=== PATIENT | female | born 1935 | race Caucasian/White ===

== ENCOUNTER 2018-10-06 09:53 | Inpatient (IN) | payer MEDICARE, MEDICAID ==
[~2018-10-06] VITALS: Ht 152.4 cm; Wt 97.5 kg
[~2018-10-06 09:53] MED LIST: ACETAMINOPHEN325 M1 PO; ASPIRIN81 M2 PO; ATIVAN1 MG PO; BENZTROPINE MESY2 MG; CALTRATE 600 +1 EACH PO; CARDIZEM CD180 MG PO; CENTRUM SILVER1 EAC4 PO; CEPACOL SORE T1 EAC2; CIPROFLOXACIN500 M1 PO; CIPROFLOXACIN500 M3 PO; DUONEB 2.5-0.5 M3 ML INH; ERGOCALCIF50000 UNIT PO; FLONASE 0.05%50 MCG NASAL; FLUPHENAZINE; FLUPHENAZINE 5 M5 M1 PO; HUMALOG PE100 UNIT/1; HUMALOG PE100 UNIT/1 SUBQ; HUMALOG100 UNIT/1; HUMALOG100 UNIT/1 SUBQ; I-CAPS AREDS S1 EACH PO; IBUPROFEN 400400 M2; IBUPROFEN200 M2 PO; LASIX 20 MG TAB20 MG PO; LASIX 40 MG TAB40 M1 PO; LEVOTHYROXIN0.125 M1 PO; LIPITOR10 MG PO; LISINOPRIL40 MG PO; MILK OF MA2400 MG/10 PO; MYLANTA 12 OZ355 M1; NITROGLYCERIN0.4 MG PO; NOVOLOG MI100 UNIT/2 SUBQ; NOVOPEN 31 EACH; POTASSIUM CHLO10 ME1 PO; PRINIVIL20 MG PO; PROLIXIN IM; PROLIXIN PO; QUESTRAN PACKET4 GM; SUDAFED30 MG PO; SYNTHROID137 MC1 PO; ULTRACET TABLE1 EACH PO; VITAMIN D1000 UNI1 PO; VOLTAREN GEL 1100 G1 TOP
[2018-10-06 09:54] VITALS: BP 150/76
[2018-10-06] MEDS ORDERED: LEVEMIR SUBQ (10:21)
[2018-10-06] MEDS ORDERED: TRADJENTA5 MG (10:22)
[2018-10-06] MEDS ORDERED: TRAMADOL 50 MG50 MG PO (10:23)
[2018-10-06] MEDS ORDERED: NORVASC5 MG PO (10:24)
[2018-10-06] MEDS ORDERED: DEPAKOTE SPRIN125 MG PO (10:24)
[2018-10-06] MEDS ORDERED: FISH OIL 1,001000 M2 PO (10:25)
[2018-10-06] MEDS ORDERED: FLUPHENAZINE HC10 MG PO (10:26)
[2018-10-06] MEDS ORDERED: OLANZAPINE2.5 MG PO (10:27)
[2018-10-06] MEDS ORDERED: PREDNISOLONE ACE5 ML OPHTHALMIC (10:28)
[2018-10-06 10:40] LABS: ABSOLUTE BASOPHILS 0.1 thou/uL (0.0-0.2); ABSOLUTE EOSINOPHILS 0.2 thou/uL (0.0-0.7); ABSOLUTE LYMPHOCYTES 1.6 thou/uL (0.8-5.3); ABSOLUTE MONOCYTES 0.9 thou/uL (0.0-1.2); ABSOLUTE NEUTROPHILS 4.7 thou/uL (1.6-8.1); BASOPHILS 1.2 %; EOSINOPHILS 2.4 %; HEMATOCRIT 42.2 % (37.0-47.0); MCH 31.7 pg (26.0-34.0); MCHC 33.2 g/dL (28.0-37.0); MCV 95.5 fL (80.0-100.0); MONOCYTES 12.4 %; MPV 7.8 fl. (7.2-11.1); NUCLEATED RBCS 0 /100WBC; PLATELET COUNT* 252 thou/uL (150-400); RBC 4.42 mil/uL (4.20-5.00); RDW-CV 14.1 % (10.5-14.5); WBC 7.5 thou/uL (4.0-11.0)
[2018-10-06 10:45] LABS: PROTIME 10.5 Seconds (9.20-11.50)
[2018-10-06 10:46] LABS: ANION GAP 6 mmol/L (7-16); BUN 9 mg/dL (7-18); CALCIUM 9.1 mg/dL (8.5-10.1); CHLORIDE 101 mmol/L (98-107); CO2 32 mmol/L (21-32); CREATININE 0.9 mg/dL (0.6-1.3); GLUCOSE 70 mg/dL (70-99); POTASSIUM 3.9 mmol/L (3.5-5.1); SODIUM 139 mmol/L (136-145)
[2018-10-06 10:56] LABS: ALBUMIN 3.3 g/dL (3.4-5.0); ALKALINE PHOSPHATASE 93 U/L (46-116); LIPASE 61 U/L (73-393); MAGNESIUM 1.7 mg/dL (1.8-2.4); NT-PRO BRAIN NAT PEPTIDE 115 pg/mL (<300); SGOT 21 U/L (15-37); SGPT 21 U/L (30-65); TOTAL BILIRUBIN 0.4 mg/dL (<0.1-1.0); TOTAL PROTEIN 7.4 g/dL (6.4-8.2); TROPONIN-I LEVEL <0.06 ng/mL (<0.06)
[2018-10-06 14:25] VITALS: BP 141/66
[2018-10-06 14:45] VITALS: BP 153/77
[2018-10-06] MEDS ORDERED: XARELTO20 MG PO (15:14)
--- NOTE | 2018-10-06 16:42 | 2DMMODE ---
[place] [address] 2 D/M-MODE ECHOCARDIOGRAM Name: BELTRAN MCQUEEN Room: [address] IN [facility]#: [id number] Admission: 10/06/18 Attend Phys: Itz Alvarez, Discharge: Date of : 35 Date of Service: 10/06/18 1642 Report #: [id number] THIS REPORT FOR: //name// APPROVED REPORT Study performed: 10/06/2018 15:53:48 EXAM: Comprehensive 2D, Doppler, and color-flow Echocardiogram Patient Location: In-Patient Room #: [facility][note 3] Status: routine BSA: 1.84 HR: 61 bpm BP: 153/77 mmHg Rhythm: NSR Other Information Technically limited study due to body habitus, poor endocardial definition. Indications Chest Pain Echo Enhancing Agent Indication: Endocardial border delineation Agent(s) / Amount(s) Used: Optison 3 cc 2D Dimensions IVSd: 11.74 (7-11mm) LVOT Diam: 19.02 (18-24mm) LVDd: 39.96 mm PWd: 9.67 (7-11mm) Ascending Ao: 34.43 (22-36mm) LVDs: 22.29 (25-40mm) Aortic Root: 32.33 mm Volumes Left Atrial Volume (Systole) LA ESV Index: 28.60 mL/m2 Aortic Valve AoV Peak Adilson.: 1.22 m/s AO Peak Gr.: 5.98 mmHg LVOT Max P.64 mmHg AO Mean Gr.: 2.81 mmHg LVOT Mean P.64 mmHg LVOT Max V: 0.95 m/s AO V2 VTI: 23.21 cm LVOT Mean V: 0.58 m/s EVAN (VTI): 2.70 cm2 LVOT V1 VTI: 22.06 [place] [address] 2 D/M-MODE ECHOCARDIOGRAM Name: BELTRAN MCQUEEN Room: [address] IN [facility]#: [id number] Admission: 10/06/18 Attend Phys: Itz Alvarez, Discharge: Date of : 35 Date of Service: 10/06/18 1642 Report #: [id number] Mitral Valve E/A Ratio: 0.84 MV Decel. Time: 232.06 ms MV E Max Adilson.: 0.99 m/s MV PHT: 67.30 ms MVA (PHT): 3.27 cm2 TDI E/Lateral E': 9.90 E/Medial E': 12.38 Medial E' Adilson.: 0.08 m/s Lateral E' Adilson.: 0.10 m/s Pulmonary Valve PV Peak Adilson.: 0.79 m/s PV Peak Gr.: 2.51 mmHg Left Ventricle The left ventricle is normal size. There is normal LV segmental wall motion. There is normal left ventricular wall thickness. Left ventricular systolic function is normal. The left ventricular ejection fraction is within the normal range. LVEF is 55-60%. Grade I - abnormal relaxation pattern. Right Ventricle The right ventricle is normal size. The right ventricular systolic function is normal. Atria The left atrium size is normal. The right atrium size is normal. Aortic Valve The aortic valve is normal in structure. No aortic regurgitation is present. There is no aortic valvular stenosis. Mitral Valve There is mitral annular calcification. Trace mitral regurgitation. No evidence of mitral valve stenosis. Tricuspid Valve The tricuspid valve is normal in structure. Trace tricuspid regurgitation. Unable to assess PA pressure. Pulmonic Valve The pulmonary valve is normal in structure. Trace [place] [address] 2 D/M-MODE ECHOCARDIOGRAM Name: BELTRAN MCQUEEN Room: [address]#: [id number] Admission: 10/06/18 Attend Phys: Itz Alvarez, Discharge: Date of : 35 Date of Service: 10/06/18 1642 Report #: [id number] Great Vessels The aortic root is normal in size. IVC is normal in size and collapses >50% with inspiration. Pericardium There is no pericardial effusion. <Conclusion> LVEF is 55-60%. There is normal LV segmental wall motion. Grade I - abnormal relaxation pattern. There is no aortic valvular stenosis. No aortic regurgitation is present. Trace mitral regurgitation. There is no aortic valvular stenosis. No aortic regurgitation is present. <ELECTRONICALLY SIGNED> By: Jose Orta MD, FACC 10/06/181641 41 41 Jose Orta MD, FACC /INF
--- NOTE | 2018-10-06 17:55 | NUR ---
PT TRANSFERED TO UNIT VIA ED THIS SHIFT AT 1500. PT HAS SCHIZOPHRENIA AND IS CURRENTLY ALERT AND ORIENTED TO SELF, UNSURE OF BASELINE FAMILY IS NOT AT BEDSIDE, CODE STATUS NEEDS TO BE FOLLOWED UP WITH TEAM WHEN FAMILY IS HERE. PT SR W BBB ON THE MONITOR AND VSS ON 2L PER NC AT THIS TIME. PT HAS 5 PIX TAKEN AND PLACED IN CHART THAT WERE PRESENT ON ADMISSION. US AND ECHO DONE AND COMPLETE. PT HAS NO C/O PAIN AND IS TOLERATING A DM DIET AT THIS TIME. PT IS ORDERED TO BE BEDREST AT THIS TIME. PT HAS TROP SERIES SCHEDULED, WILL CONTINUE TO MONITOR AND ASSESS. HOURLY ROUNDING MAINTAINED THIS SHIFT.
[2018-10-06 19:30] VITALS: BP 165/81
--- NOTE | 2018-10-06 19:30 | NUR ---
RECEIVED REPORT AND ASSUMED CARE OF PT, ASSESSMENT COMPLETED. PT UNABLE TO ANSWER ORIENTATION QUESTION CORRECTLY. O2 ON AT 2L/NC, NO SOB NOTED. NO C/O CP, TELEMETRY ON SHOWING SR WITH BBB. INCONT OF URINE CONSTANTLY. MARIUM AREA WITH MOISTURE DERMATITIS. ZEHRA LOWER LEGS, ANKLES AND FEET WITH 3+ EDEMA. WILL CONT TO MONITOR AND ASSIST NEEDED.
[2018-10-07] VITALS: BP 117/48
[2018-10-07 04:00] VITALS: BP 139/62
[2018-10-07 05:05] LABS: ABSOLUTE BASOPHILS 0.1 thou/uL (0.0-0.2); ABSOLUTE EOSINOPHILS 0.2 thou/uL (0.0-0.7); ABSOLUTE LYMPHOCYTES 1.7 thou/uL (0.8-5.3); ABSOLUTE MONOCYTES 1.2 thou/uL (0.0-1.2); ABSOLUTE NEUTROPHILS 4.1 thou/uL (1.6-8.1); BASOPHILS 1.3 %; EOSINOPHILS 2.7 %; HEMATOCRIT 36.9 % (37.0-47.0); HEMOGLOBIN 12.5 gm/dL (12.0-15.0); LYMPHOCYTES 23.6 %; MCH 32.1 pg (26.0-34.0); MCHC 33.8 g/dL (28.0-37.0); MCV 95.2 fL (80.0-100.0); MPV 8.1 fl. (7.2-11.1); NUCLEATED RBCS 0 /100WBC; PLATELET COUNT* 243 thou/uL (150-400); POLYS 56.4 %; RBC 3.87 mil/uL (4.20-5.00); RDW-CV 14.1 % (10.5-14.5); WBC 7.3 thou/uL (4.0-11.0)
[2018-10-07 05:23] LABS: ANION GAP 7 mmol/L (7-16); BUN 10 mg/dL (7-18); CALCIUM 8.6 mg/dL (8.5-10.1); CHLORIDE 100 mmol/L (98-107); CO2 30 mmol/L (21-32); CREATININE 0.9 mg/dL (0.6-1.3); GLUCOSE 124 mg/dL (70-99); POTASSIUM 3.9 mmol/L (3.5-5.1); SODIUM 137 mmol/L (136-145); TROPONIN-I LEVEL <0.06 ng/mL (<0.06)
--- NOTE | 2018-10-07 05:47 | NUR ---
SLEPT WELL. PT REPOSITION Q 2HR FROM SIDE TO SIDE. INCONT OF URINE EACH TIME. NO CHANGE IN ASSESSMENT. TELEMETRY CONT TO SHOW SR WITH BBB. LAST EVENING REFUSED LAB DRAW BUT ALLOWED DRAW THIS AM. HS GOALS OF REST AND SAFETY ACHIEVED. HOURLY ROUNDING OBSERVED.
[2018-10-07 08:10] VITALS: BP 164/51
--- NOTE | 2018-10-07 10:20 | EKG ---
[place] [address] ELECTROCARDIOGRAM REPORT Name: BELTRAN MCQUEEN Room: [address] ADM IN [facility]#: [id number] Admission: 10/06/18 Attend Phys: Itz lAvarez MD Discharge: Date of : 35 Report #: [id number] THIS REPORT FOR: //name// [facility] ED Test Date: 2018-10-06 Test Time: 10:00:42 Pat Name: BELTRAN MCQUEEN Department: Room: [facility] Gender: F Programmer Numerical Control: : 1935 Requested By: Ramiro Rae Order Number: [id number] MD: Abdullahi Kiser Measurements Intervals [place]wn Rate: 70 P: 45 WI: 175 QRS: -32 QRSD: 125 T: 27 QT: 440 QTc: 475 Interpretive Statements Sinus rhythm Right bundle branch block Compared to ECG 05/13/2013 15:07:10 Right bundle-branch block now present Sinus arrhythmia no longer present Electronically Signed On 10-07-2018 10:20:26 EDUCATION PROFESSIONAL by Abdullahi Kiser [email or web address] <ELECTRONICALLY SIGNED> By: Abdullahi Kiser MD, [facility] 10/07/18 1020 1000 1000 Abdullahi Kiser MD, [facility] /EPI
[2018-10-07 11:13] VITALS: BP 131/63
[2018-10-07 11:46] VITALS: BP 109/49; BP 97/45
--- NOTE | 2018-10-07 14:37 | NUR ---
REPORT CALLED AND GIVEN TO CHANCE AT NURSING FACILITY. PT VSS THIS SHIFT WITH NO C/O CHEST PAIN THIS ADMISSION. PT SR W BBB ON THE MONITOR AND ON 2L PER NC LABS STABLE WITH NO NEW CONCERNS. PT TOLERATING CARDIAC DIET AND WOUNDS NOTED DURING REPORT AND IN PIX IN CHART. IV REMOVED INTACT AT THIS TIME. PT TO GO VIA AMBULANCE, PT CLEANED UP AND GOTTEN READY FOR TRANSPORT. WILL CONTINUE TO MONITOR UNTIL SHE LEAVES.
--- NOTE | 2018-10-07 14:48 | NUR ---
CONFIGURATION MANAGEMENT ADVISOR [facility] TODAY AT 1500. OLGA WILL INFORM LINSEY OF THE PATIENT'S RETURN. D/C [employer] INFORMED THE PATIENT'S DTR OSORIO OF HER MOTHERS RETURN TO [facility], AND SHE IS IN AGREEMENT. D/C [employer] FAXED THE PATIENT'S D/C ORDERS TO [facility]. D/C [employer] ARRANGED TRANSPORT FOR THE PATIENT WITH [facility] FOR 1500. D/C [employer] INFORMED THE RN IN-CHARGE OF THE PATIENT OF THE PATIENT'S TIME OF TRANSPORT AND WHERE TO CALL REPORT. CM WILL REMAIN AVAILABLE TO ASSIST AND FOLLOW NEEDED.
== END 2018-10-07 15:09 | DRG 445 ==
LOC: M.ERS 09:53 → M.2W 11:19 → M.TBA-ER 11:19 → M.2W 14:34
PROVIDERS: Emergency Medicine Emergency Medical Services; ADMIT Internal Medicine
DX: K80.20 Calculus of gallbladder without cholecystitis without obstruction (principal); Z68.41 Body mass index [BMI] 40.0-44.9, adult; I50.32 Chronic diastolic (congestive) heart failure; I25.119 Atherosclerotic heart disease of native coronary artery with unspecified angina pectoris; I11.0 Hypertensive heart disease with heart failure; E78.5 Hyperlipidemia, unspecified; E66.9 Obesity, unspecified; F20.9 Schizophrenia, unspecified; E11.9 Type 2 diabetes mellitus without complications; Z28.21 Immunization not carried out because of patient refusal; I25.2 Old myocardial infarction; Z79.899 Other long term (current) drug therapy

== ENCOUNTER 2019-11-01 15:33 | Inpatient (IN) | payer MEDICARE, MEDICAID ==
[~2019-11-01] VITALS: Ht 160 cm; Wt 88.9 kg
--- NOTE | ~2019-11-01 | CON ---
[address] [address] CONSULTATION Name: BELTRAN MCQUEEN Room: [place] [address] ADM IN [facility].#: [id number] Admission: 11/01/19 Attend Phys: Adelina Gould MD Discharge: Date of : 35 Report #: [id number] THIS REPORT FOR: //name// cc: Sorin Yanez MD, Dennis R MD ~ THIS REPORT FOR: //name// CC: Sorin Gould CARDIOLOGY CONSULTATION LOCATION: Room number is 233. HISTORY OF PRESENT ILLNESS: I was asked by Dr. Mahajan to see this 84-year-old white female in cardiology consultation for evaluation and treatment of new onset atrial fibrillation with rapid ventricular response. This lady has a history of schizophrenia and now dementia and cannot give a history. She is from a alf. She was admitted with acute hypoxic respiratory failure. She has COPD. She also has pneumonia on her chest x-ray. Other problems include insulin-dependent diabetes mellitus, hypercholesterolemia, and essential hypertension. She has been treated aggressively for her respiratory difficulties. She came in on 11/01/2019. She had been getting DuoNeb treatments every 4 hours. Last night, she went into atrial fibrillation with rapid ventricular response. She was treated with diltiazem and has reverted to sinus rhythm. Her DuoNebs have been switched to Xopenex. She has been switched to p.o. diltiazem. I believe she got IV diltiazem last night. She has remained in sinus rhythm. It is not known whether she has underlying heart or coronary artery disease. Her past medical history does include coronary artery disease and myocardial infarction as best I can tell. Additionally, the above past medical history applies. MEDICATIONS: Included atorvastatin 10 mg daily, Levemir insulin in adjusted dose. Amlodipine 5 mg daily, fish oil 1000 mg daily, aspirin 81 mg daily, lisinopril 20 mg daily, lorazepam 1 mg p.r.n., Drisdol p.r.n. that is ergocalciferol, magnesium hydroxide p.r.n., p.r.n. nitroglycerin, tramadol 50 mg p.r.n., Depakote at bedtime 125 mg, NovoLog 70/30 at 7 units subcutaneous t.i.d., Lasix 40 mg daily, levothyroxine 150 mcg daily, fluphenazine 5 mg t.i.d., olanzapine 7.5 mg at bedtime, fluphenazine decanoate 25 mg IM every 2 weeks, ipratropium/albuterol sulfate inhaler q.i.d., Mucinex 600 mg every 12 hours, and nystatin topical p.r.n. ALLERGIES: She has no known allergies. REVIEW OF SYSTEMS: [place] [address] CONSULTATION Name: BELTRAN MCQUEEN Room: [address] IN [facility].#: [id number] Admission: 11/01/19 Attend Phys: Adelina Gould MD Discharge: Date of : 35 Report #: [id number] FAMILY HISTORY: Unobtainable. SOCIAL HISTORY: Unobtainable. PHYSICAL EXAMINATION: GENERAL: She presents as well-developed, well-nourished, obese white female, in no acute distress. VITAL SIGNS: Her pulse is 72 and regular, respirations 28 and regular, temperature 97.7, blood pressure 131/70. HEENT: Her head was atraumatic. Eyes clear. NECK: Supple. There is no jugular venous distention or hepatojugular reflux, although her neck is quite obese. LUNGS: Revealed decreased breath sounds with an increased expiratory phase bilaterally. There were bilateral wheezes. HEART: Revealed distant first and second heart sounds. There were no murmurs, rubs, thrills, heaves or gallops. PMI is not displaced. The rhythm is regular. ABDOMEN: Obese, soft and flat and nontender. No palpable masses, no organomegaly. EXTREMITIES: Reveal no cyanosis or clubbing. There was trace edema. NEUROLOGIC: The patient did not mentate normally. She had a very child like demeanor. She did answer questions, but in a very limited fashion. LABORATORY DATA: She did have a V/Q lung scan on admission that was low to intermediate probability. She had a CT of the chest, which showed ground glass opacities in both lungs, particularly in the lingula and lung bases, otherwise it was unremarkable. That was a PE protocol. Regular chest x-ray showed limited assessment due to low lung volumes. There is bronchial wall thickening. Those studies were back on the . The NT-proBNP was 577. I believe there was a negative troponin at one point, although I do not see that, at least I was told that. The EKG from the from last night demonstrated atrial fibrillation with a rapid ventricular response. There is right bundle branch block and low voltage in the precordial leads. This lady in fact does have large breasts. Her initial EKG, when she came in, shows sinus arrhythmia, right bundle branch block that is really about it. She is in sinus rhythm now. IMPRESSION: 1. Atrial fibrillation with rapid ventricular response. 2. Chronic obstructive pulmonary disease with exacerbation. 3. Acute on chronic respiratory failure. 4. Dementia. 5. Pneumonia. 6. Insulin-dependent diabetes mellitus. 7. Hypercholesterolemia. 8. Essential hypertension. 9. [place] [address] CONSULTATION Name: BELTRAN MCQUEEN Room: [place] [address] ADM IN .R.#: [id number] Admission: 11/01/19 Attend Phys: Adelina Gould MD Discharge: Date of : 35 Report #: [id number] RECOMMENDATION: I would observe her at this point. She probably needs to be on aspirin as a stroke prevention modality. I suspect this lady has a fall risk. She has a fall risk sign outside her door, so I am hesitant to anticoagulate her with either Coumadin or Eliquis, etc. I would give her Xopenex, which has already been ordered. She was on DuoNebs. I will leave her on the diltiazem, so that if she goes into atrial fibrillation, her rate will be controlled. I checked an echo. I would probably not do a stress test because I do not think she can cooperate. I would not Cath her as I do not think she can cooperate and if she has another episode of atrial fibrillation, then I would treat her with an antiarrhythmic. She cannot get a type 1 drug. I would be hesitant given her lung disease to give her amiodarone. Apparently, she does not have a history of congestive heart failure. Note that her BNP was fairly low when she came in, it was only 577. I am not sure, I would give her sotalol either. I would give her dronedarone, however. She is probably a candidate as I do not think she has a history of heart failure. Thank you very much for asking me to see the patient. If there are any questions, please feel free to contact me. By: 1430 [id number]. Lai Hopkins MD, FACC /nt
[~2019-11-01 15:33] MED LIST changes: +ATIVAN1 M1 PO; -ATIVAN1 MG PO; +DEPAKOTE SPRIN125 MG PO; +FISH OIL 1,001000 M2 PO; -LASIX 20 MG TAB20 MG PO; +LEVEMIR100 UNIT/1 SUBQ; -MILK OF MA2400 MG/10 PO; +MILK OF MA400 MG/5 M PO; +NORVASC5 MG PO; +OLANZAPINE2.5 MG PO; +PREDNISOLONE ACE5 ML OPHTHALMIC; -SYNTHROID137 MC1 PO; +SYNTHROID150 MCG PO; +TRADJENTA5 MG; +TRAMADOL 50 MG50 MG PO; +XARELTO20 MG PO
[2019-11-01 15:38] VITALS: BP 137/78
[2019-11-01] MEDS ORDERED: FLUPHENAZI25 MG/1 ML IM (15:52)
[2019-11-01] MEDS ORDERED: IPRAT-ALBUT 0.5-3 ML INH (15:56)
[2019-11-01 15:58] LABS: HEMATOCRIT 42.5 % (37.0-47.0); HEMOGLOBIN 14.2 gm/dL (12.0-15.0); MCH 30.9 pg (26.0-34.0); MCHC 33.5 g/dL (28.0-37.0); MCV 92.3 fL (80.0-100.0); MPV 8.3 fl. (7.2-11.1); NUCLEATED RBCS 0 /100WBC; PLATELET COUNT* 220 thou/uL (150-400); RBC 4.61 mil/uL (4.20-5.00); RDW-CV 14.9 % (10.5-14.5); WBC 7.1 thou/uL (4.0-11.0)
[2019-11-01] MEDS ORDERED: MUCINEX600 MG PO (16:02)
[2019-11-01] MEDS ORDERED: NYSTATIN1000000 UN TOP (16:04)
[2019-11-01 16:08] LABS: BE 0.1 mmol/L (-2 to +3); PCO2 43.2 mmHg (35.0-45.0); PO2 116.7 mmHg (75.0-100.0); pH 7.386 (7.340-7.450)
[2019-11-01 16:09] LABS: CALCIUM 8.5 mg/dL (8.5-10.1); CREATININE 1.4 mg/dL (0.6-1.3); POTASSIUM 4.1 mmol/L (3.5-5.1)
[2019-11-01 16:13] LABS: ALBUMIN 3.5 g/dL (3.4-5.0); MAGNESIUM 1.7 mg/dL (1.8-2.4); TOTAL BILIRUBIN 0.3 mg/dL (<0.1-1.0); TOTAL PROTEIN 8.4 g/dL (6.4-8.2)
[2019-11-01 16:25] LABS: URINE BILIRUBIN NEGATIVE (Negative); URINE BLOOD TRACE (Negative); URINE CLARITY SL CLOUDY; URINE COLOR YELLOW; URINE GLUCOSE-RANDOM NEGATIVE (Negative); URINE KETONES NEGATIVE (Negative); URINE LEUKOCYTES-REFLEX 1+ (Negative); URINE NITRITE-REFLEX POSITIVE (Negative); URINE PROTEIN TRACE (Negative); URINE SPECIFIC GRAVITY 1.025 (1.005-1.030); URINE UROBILINOGEN 0.2 E.U./dl (0.2-1.0)
[2019-11-01 16:31] LABS: SQUAMOUS 0-3 Few /LPF (0-3); URINE WBC-REFLEX >25 Many /HPF (0-5); WBC CLUMPS Few (None Seen)
[2019-11-01 16:32] LABS: BACTERIA-REFLEX >30 Many /HPF (None Seen); CASTS None Seen /LPF (None Seen); CRYSTALS None Seen /LPF (None Seen); MUCUS None Seen strn/LPF (None Seen); URINE RBC 3-10 Few /HPF (0-2)
[2019-11-01 16:53] LABS: ABSOLUTE LYMPHOCYTES 1.1 thou/uL (0.8-5.3); ABSOLUTE MONOCYTES 0.9 thou/uL (0.0-1.2); ATYPICAL LYMPHS 2 %; LARGE PLATELETS OCCASIONAL; PLATELET ESTIMATE ADEQUATE
[2019-11-01 18:30] VITALS: BP 141/70
[2019-11-01 20:15] VITALS: BP 133/64
[2019-11-01] MEDS ORDERED: VITAMIN D325 MC3 PO (21:05)
[2019-11-02] VITALS: BP 148/81
[2019-11-02 04:00] VITALS: BP 120/57
--- NOTE | 2019-11-02 07:23 | NUR ---
ASSUMED PT CARE AT 1900. NURSING ASSESSMENT COMPLETED AT START OF SHIFT. PT BIGEMINY/SR WITH PACS BBB THIS SHIFT. PT VOICED NO CONCERNS. Q2H REPOSITIONING COMPLETED. HOURLY ROUNDING COMPLETED. HIGH FALL PRECAUTIONS IN PLACE. PT ON BIPAP PART OF THE NIGHT. CALL LIGHT WITHIN REACH.
[2019-11-02 08:35] VITALS: BP 153/68
[2019-11-02 10:59] LABS: APTT 30.1 Seconds (25.0-31.3); INR 1.1
--- NOTE | 2019-11-02 11:16 | EKG ---
[place] [address] ELECTROCARDIOGRAM REPORT Name: ANGELI MCQUEENRadha Rodriguez Room: [place] [address] ADM IN [facility]#: [id number] Admission: 11/01/19 Attend Phys: Adelina Gould, Discharge: Date of : 35 Date of Service: 11/01/19 1542 Report #: [id number] THIS REPORT FOR: cc: Sorin Yanez MD, Dennis R MD Holkins,Abdullahi Stacy MD [facility] ~ THIS REPORT FOR: //name// [facility] ED Test Date: 2019-11-01 Test Time: 15:42:26 Pat Name: BELTRAN MCQUEEN Department: Room: [place] [address] Gender: F Batch Dumper: : 1935 Requested By: Irene Stone Order Number: [id number] Reading MD: Abdullahi Kiser Measurements Intervals [place] Rate: 90 P: -1 AR: 172 QRS: -29 QRSD: 125 T: 15 QT: 442 QTc: 541 Interpretive Statements Sinus arrhythmia Right bundle branch block Baseline wander in lead(s) V1,V2 Compared to ECG 10/06/2018 10:00:42 Sinus arrhythmia is noted Electronically Signed On 11-02-2019 11:15:16 PRINCIPAL PROCESS ENGINEER by Abdullahi Kiser [email or web address] <ELECTRONICALLY SIGNED> By: Abdullahi Kiser MD, [facility] 11/02/19 1115 1542 1542 Abdullahi Kiser MD, [facility] /EPI
[2019-11-02 12:38] VITALS: BP 136/68
[2019-11-02 12:48] LABS: CALCIUM 7.8 mg/dL (8.5-10.1); CREATININE 1.2 mg/dL (0.6-1.3)
--- NOTE | 2019-11-02 15:02 | 2DMMODE ---
[place] [address] 2 D/M-MODE ECHOCARDIOGRAM Name: BELTRAN MCQUEEN Room: [place] [address] ADM IN [facility]#: [id number] Admission: 11/01/19 Attend Phys: Adelina Gould, Discharge: Date of : 35 Date of Service: 11/02/19 1501 Report #: [id number] THIS REPORT FOR: cc: Sorin Yanez MD, Dennis R MD Liston,Jez Bolivar MD [facility] ~ APPROVED REPORT Study performed: 11/02/2019 13:19:42 EXAM: Comprehensive 2D, Doppler, and color-flow Echocardiogram Patient Location: In-Patient Room #: [facility] Status: routine HR: 68 bpm BP: 153/68 mmHg Rhythm: NSR Other Information Study Quality: Good Indications Dyspnea 2D Dimensions IVSd: 12.43 (7-11mm) LVOT Diam: 20.83 (18-24mm) LVDd: 37.58 mm PWd: 11.31 (7-11mm) Ascending Ao: 33.43 (22-36mm) LVDs: 23.41 (25-40mm) Aortic Root: 33.63 mm Volumes Left Atrial Volume (Systole) LA ESV Index: 27.60 mL/m2 Aortic Valve AoV Peak Adilson.: 1.31 m/s AO Peak Gr.: 6.84 mmHg LVOT Max P.87 mmHg AO Mean Gr.: 3.29 mmHg LVOT Mean P.87 mmHg LVOT Max V: 0.98 m/s AO V2 VTI: 25.09 cm LVOT Mean V: 0.63 m/s EVAN (VTI): 2.94 cm2 LVOT V1 VTI: 21.62 [place] [address] 2 D/M-MODE ECHOCARDIOGRAM Name: BELTRAN MCQUEEN Room: [address] IN [facility].#: [id number] Admission: 11/01/19 Attend Phys: Adelina Gould, Discharge: Date of : 35 Date of Service: 11/02/19 1501 Report #: [id number] E/A Ratio: 0.75 MV Decel. Time: 237.93 ms MV E Max Adilson.: 1.07 m/s MV PHT: 69.00 ms MVA (PHT): 3.19 cm2 TDI E/Lateral E': 8.92 E/Medial E': 11.89 Medial E' Adilson.: 0.09 m/s Lateral E' Adilson.: 0.12 m/s Pulmonary Valve PV Peak Adilson.: 0.78 m/s PV Peak Gr.: 2.45 mmHg Tricuspid Valve RAP Estimate: 5.00 mmHg TR Peak Gr.: 21.80 mmHg RVSP: 26.00 mmHg PA Pressure: 26.00 mmHg Left Ventricle The left ventricle is normal size. There is normal LV segmental wall motion. Mild concentric left ventricular hypertrophy. Left ventricular systolic function is normal. LVEF is 60-65%. Grade I - abnormal relaxation pattern. Right Ventricle The right ventricle is normal size. The right ventricular systolic function is normal. Atria Left atrium is mildly dilated. Right atrium is mildly dilated. Aortic Valve Mild aortic valve sclerosis. No aortic regurgitation is present. There is no aortic valvular stenosis. Mitral Valve There is mitral annular calcification. There is no mitral valve regurgitation noted. No evidence of mitral valve stenosis. Tricuspid Valve The tricuspid valve is normal in structure. Trace tricuspid regurgitation. No pulmonary hypertension[place] [address] 2 D/M-MODE ECHOCARDIOGRAM Name: BELTRAN MCQUEEN Room: [address] IN [facility]#: [id number] Admission: 11/01/19 Attend Phys: Adelina Gould, Discharge: Date of : 35 Date of Service: 11/02/19 1501 Report #: [id number] The pulmonary valve is normal in structure. Trace pulmonic regurgitation. Great Vessels The aortic root is normal in size. IVC is not well visualized. Pericardium There is no pericardial effusion. <Conclusion> The left ventricle is normal size. Mild concentric left ventricular hypertrophy. Left ventricular systolic function is normal. LVEF is 60-65%. Grade I - abnormal relaxation pattern. Left atrium is mildly dilated. Right atrium is mildly dilated. Trace tricuspid regurgitation. No pulmonary hypertension. <ELECTRONICALLY SIGNED> By: Jez Starks MD, FACC 11/02/19 1501 1501 1501 Jez Starks MD, FACC /INF
--- NOTE | 2019-11-02 15:29 | NUR ---
MET WITH PT AND PLACED CALL TO DAVID/JAISON TO DISCUSS HOME SITUATION/DC PLANNING. PT LIVES AT [facility]. PLAN IS FOR PT TO RETURN THERE AT DC. PT IS W/C BOUND, NORMALLY ABLE TO FEED SELF AND PROPEL AROUND UNIT. SHE IS NOT ALWAYS COOPERATIVE WITH PERSONAL CARES PER LINSEY/OGNR. FAXED CLINICAL UPDATE AND WILL FOLLOW
[2019-11-02 16:23] VITALS: BP 118/64
[2019-11-02 20:30] VITALS: BP 119/50
[2019-11-03] VITALS: BP 125/56
[2019-11-03 04:00] VITALS: BP 153/71
--- NOTE | 2019-11-03 08:03 | NUR ---
ASSUMED PT CARE AT 1900. NURSING ASSESSMENT COMPLETED THIS SHIFT. PT VOICED NO CONCERNS THIS SHIFT. HOURLY ROUNDING COMPLETED. Q2T COMPLETED. HIGH FALL PRECAUTIONS IN PLACE. NEGATIVE SEPSIS SCREENING THIS SHIFT. CALL LIGHT WITHIN REACH.
[2019-11-03 08:32] VITALS: BP 133/67
[2019-11-03 12:36] VITALS: BP 152/64
--- NOTE | 2019-11-03 17:57 | NUR ---
ASSUMED CARE OF PATIENT AT APPROX 0730. ALERT AND ORIENTED X2. ASSESSMENT COMPLETED AND CHARTED. VSS ON 2 LITERS 02. PATIENT CONFUSED AND FORGETFUL, ATTEMPTING TO GET OUT OF BED. PATIENTS BLOOD SUGARS HAVE BEEN HIGH TODAY, FAMILY HAS BEEN BRINGING IN SNACKS AND FOOD FOR PATIENT. A BAG OF CHOCOLATE CANDIES WAS LEFT AT THE BEDSIDE, PUT AWAY IN BEDSIDE DRAWER. INSULIN GIVEN ORDERED. ANTIBIOTICS INFUSED ORDERED. FALL PRECAUTIONS IN PLACE. CALL LIGHT WITHIN REACH. HOURLY ROUNDS COMPLETED. WILL CONTINUE WITH PLAN OF CARE.
[2019-11-03 19:54] VITALS: BP 152/68
[2019-11-03 20:00] VITALS: BP 116/56
[2019-11-04] VITALS: BP 127/64
[2019-11-04 03:30] VITALS: BP 126/62
--- NOTE | 2019-11-04 03:40 | NUR ---
PT ALERT ORIENTED. MAKING STATEMENTS, I USE TO BE BLIND BECAUSE MY SISTER POKED A FORK IN MY EYES. PT COOPERATIVE FOR THIS RN. GENERALIZED EDEMA. AVILES WITH CLEAR YELLOW. TELEMETRY SHOWS SR. HS BLOOD GLUCOSE TX AND SNACK GIVEN. O2 AT 2 LITERS NC. YEAST IN MARIUM AREA, PANUS AND UNDER BREASTS CLEANED AND TX WITH NYSTATIN POWDER. WCTM.
[2019-11-04 05:07] LABS: BE 2.3 mmol/L (-2 to +3); PCO2 49.2 mmHg (35.0-45.0); PO2 78.5 mmHg (75.0-100.0); pH 7.377 (7.340-7.450)
[2019-11-04 06:40] LABS: ALBUMIN 2.8 g/dL (3.4-5.0); CALCIUM 7.9 mg/dL (8.5-10.1); CREATININE 1.2 mg/dL (0.6-1.3); MAGNESIUM 2.2 mg/dL (1.8-2.4); POTASSIUM 4.4 mmol/L (3.5-5.1); TOTAL BILIRUBIN 0.2 mg/dL (<0.1-1.0); TOTAL PROTEIN 7.1 g/dL (6.4-8.2)
[2019-11-04 07:30] VITALS: BP 141/70
[2019-11-04 13:23] LABS: HEMATOCRIT 37.7 % (37.0-47.0); HEMOGLOBIN 12.5 gm/dL (12.0-15.0); MCH 30.7 pg (26.0-34.0); MCHC 33.2 g/dL (28.0-37.0); MCV 92.4 fL (80.0-100.0); MPV 8.5 fl. (7.2-11.1); RBC 4.08 mil/uL (4.20-5.00); RDW-CV 14.6 % (10.5-14.5); WBC 9.6 thou/uL (4.0-11.0)
[2019-11-04 15:15] VITALS: BP 142/70
--- NOTE | 2019-11-04 15:27 | NUR ---
ASSUMED PT CARE AT 0800, AOX2, CONFUSED. UP WITH ASSIST, O2 SAT 90'S 2L NC. TRACING SR ON TELE. PT DENIES PAIN. GENERALIZED EDEMA NOTED. PT ACCU CHECK. VSS, AM ASSESSMENT CHARTED, MEDS GIVEN PER MAR, CALL LIGHT WITHIN REACH, HOURLY ROUNDING, WILL CONTINUE TO MONITOR.
[2019-11-04 16:39] VITALS: BP 110/78
--- NOTE | 2019-11-04 18:14 | NUR ---
PT HEART RHYTHM RUNNING TACHY AT 160'S. DR NOTIFIED. GET AN ORDER FOR EKG, SHOWS AFIB WITH RAPID V-RATE. DILTIAZEM ORDERED RECEIVED FROM PROVIDER, RUNNING AT 20MG/HR. HR STILL ON 140'160'S. WILL CONTINUE TO MONITOR.
[2019-11-04 20:00] VITALS: BP 103/38
[2019-11-05] VITALS: BP 104/37
[2019-11-05 04:00] VITALS: BP 144/63
--- NOTE | 2019-11-05 05:08 | NUR ---
ASSUMED PATIENT CARE AT 1900. PATIENT ALERT TO SELF. CARDIZEM GTT STOPPED AT 2100. RATE IN THE 50-60'S FROM APPROX 2300 UNTIL THIS AM. AVILES PATENT TO DEPENDENT DRAINAGE. PATIENT REFUSED AND SPIT OUT MEDICATIONS. STATED "I DON'T HAVE TO TAKE THOSE" CLARIFIER AND HOURLY ROUNDING COMPLETED DOCUMENTED
[2019-11-05 06:16] LABS: CALCIUM 7.9 mg/dL (8.5-10.1); CREATININE 0.9 mg/dL (0.6-1.3); MAGNESIUM 2.2 mg/dL (1.8-2.4); POTASSIUM 3.8 mmol/L (3.5-5.1)
[2019-11-05 08:00] VITALS: BP 160/66
--- NOTE | 2019-11-05 12:58 | NUR ---
ASSUMED PT CARE AT 0800, AOX3, FORGETFUL, O2 SAT 90'S 2L NC. TRACING SINUS RHYTHM ON TELE, HAVE EPISODE OF AFIB ON MONITOR AT TIMES. CARDIOLOGY CONSULTED. PT ACCU CHECK, PT Q2 TURN. RED BUTTOCKS NOTED. BARRIER CREAM GIVEN. PT HAS GENERALIZED EDEMA. PT HAS AVILES CATH DRAINING WELL. VSS, AM ASSESSMENT CHARTED, MEDS GIVEN PER MAR, CALL LIGHT WITHIN REACH, WILL COTINUE TO MONITOR.
[2019-11-05 13:55] VITALS: BP 131/70
[2019-11-05 18:05] VITALS: BP 141/72
[2019-11-06] VITALS: BP 110/47
[2019-11-06 04:13] VITALS: BP 114/57
--- NOTE | 2019-11-06 07:00 | NUR ---
NO SIGNIFICANT EVENTS THIS SHIFT WITH PATIENT. PATIENT RESTING IN BED, ABLE TO RESPOND WHEN PROMPTED. PATIENT'S LUNGS STILL SOUND WHEEZY AND STRIDOR. NO BM THIS SHIFT. TURNS Q2H FOR SKIN INTEGRITY. BARRIER CREAM APPLIED. PATIENT WILL TAKE PILLS WHEN CRUSHED IN APPLESAUCE. NURSING STAFF JUAN
[2019-11-06 08:00] VITALS: BP 175/76
[2019-11-06 08:42] LABS: CALCIUM 8.1 mg/dL (8.5-10.1); MAGNESIUM 2.3 mg/dL (1.8-2.4); POTASSIUM 3.3 mmol/L (3.5-5.1)
[2019-11-06 12:21] VITALS: BP 137/61
--- NOTE | 2019-11-06 14:54 | NUR ---
ORDER RECEIVED 11/06/19 AT 1052. PT SEEN AND TO BE DISCHARGED FROM OCCUPATIONAL THERAPY SERVICES DUE TO PT AT BASELINE. PT IS TOTAL CARE FOR ADL'S AT [facility]TC FACILITY.
--- NOTE | 2019-11-06 16:40 | EKG ---
[place] [address] ELECTROCARDIOGRAM REPORT Name: BELTRAN MCQUEEN Room: [place] [address] ADM IN ..#: [id number] Admission: 11/01/19 Attend Phys: Adelina Gould, Discharge: Date of : 35 Date of Service: 11/04/19 0634 Report #: [id number] THIS REPORT FOR: //name// [facility] Test Date: 2019-11-04 Test Time: 06:34:30 Pat Name: BELTRAN MCQUEEN Department: Room: [place] [address] Gender: F Senior Instrumentation Engineer: JULIA : 1935 Requested By: Christopher Mahajan Order Number: [id number] Bill MD: Abdullahi Kiser Measurements Intervals [place] Rate: 93 P: 34 CO: 140 QRS: -28 QRSD: 129 T: 16 QT: 414 QTc: 515 Interpretive Statements Sinus rhythm Multiple premature complexes, supraven Right bundle branch block Compared to ECG 11/01/2019 15:42:26 Sinus arrhythmia no longer present Electronically Signed On 11-06-2019 16:39:47 LACQUER COATER by Abdullahi Kiser [email or web address] <ELECTRONICALLY SIGNED> By: Abdullahi Kiser MD, [facility] 11/06/19 1639 0634 0634 Abdullahi Kiser MD, [facility] /EPI
--- NOTE | 2019-11-06 16:41 | EKG ---
[place] [address] ELECTROCARDIOGRAM REPORT Name: BELTRAN MCQUEEN Room: [place] [address] ADM IN .R.#: [id number] Admission: 11/01/19 Attend Phys: Adelina Gould, Discharge: Date of : 35 Date of Service: 11/04/19 1659 Report #: [id number] THIS REPORT FOR: //name// [facility] Test Date: 2019-11-04 Test Time: 16:59:07 Pat Name: BELTRAN MCQUEEN Department: Room: [place] [address] Gender: F Utility Bagger: [id number] : 1935 Requested By: Christopher Mahajan Order Number: [id number] Bill MD: Abdullahi Kiser Measurements Intervals [place] Rate: 145 P: [place]: QRS: -17 QRSD: 119 T: 0 QT: 330 QTc: 513 Interpretive Statements Atrial fibrillation with rapid V-rate Right bundle branch block Low voltage, precordial leads Compared to ECG 11/01/2019 15:42:26 Low QRS voltage now present Sinus arrhythmia no longer present Electronically Signed On 11-06-2019 16:40:21 AXMINSTER RUG SETTER by Abdullahi Kiser [email or web address] <ELECTRONICALLY SIGNED> By: Abdullahi Kiser MD, FACC 11/06/19 1640 1659 1659 Abdullahi Kiser MD, FAC /EPI
[2019-11-06 16:52] VITALS: BP 187/96
[2019-11-06 20:15] VITALS: BP 147/67
--- NOTE | 2019-11-06 20:19 | NUR ---
ASSUMED PT CARE AT 0730. ASSESSMENT COMPLETED CHARTED. ABLE TO MAKE SOME NEEDS KNOWN. NO C/O PAIN OR DISCOMFORT. PT KEPT YELLING OUT FOR AN "SHANDRA" AND A "SHERLIE". NOTIFIED FAMILY AND THEY STATED THEY WOULD BE BY LATER. PT CONFUSED AND FORGETFUL SO STARTED YELLING OUT 5 MINS LATER. RESTING IN BED ALL DAY, W3VHAIS COMPLETED CHARTED. WILL CONTINUE TO MONITOR.
[2019-11-07 00:38] VITALS: BP 104/56
[2019-11-07 04:00] VITALS: BP 135/60
--- NOTE | 2019-11-07 05:56 | NUR ---
PT SLEPT MOST OF SHIFT. ASSESSMENT DOCUMENTED. MEDS GIVEN PER E-MAR. IV PATENT. NO REPORTS OF PAIN. PT REPOSITIONED THROUGH SHIFT. FALL PRECAUTIONS IN PLACE WILL CONTINUE WITH PLAN OF CARE.
[2019-11-07 08:00] VITALS: BP 133/68
[2019-11-07 11:13] VITALS: BP 137/64
--- NOTE | 2019-11-07 11:33 | NUR ---
PT ALERT TO DROWSY AND ORIENTED TO SELF WITH BASELINE CONFUSION, AFIB ON TELE, NC@1.5L, AUDIBLE WHEEZING, ACHS ACCUCHECKS, Q2H TURNS, BEDREST, HOURLY ROUNDING PERFORMED, POSSESSIONS AND CALL LIGHT WITHIN REACH.
--- NOTE | 2019-11-07 16:41 | NUR ---
ANTICIPATED DC BACK TO [facility] TOMORROW. CALLED AND FAXED UPDATE TO LINSEY/PERRY. CALLED AND UPDATED DTR/JAISON ALSO. IN AGREEMENT
[2019-11-07 16:45] VITALS: BP 120/61
--- NOTE | 2019-11-07 20:08 | EKG ---
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
[2019-11-07 20:30] VITALS: BP 157/44
[2019-11-08] VITALS: BP 108/53
[2019-11-08 04:00] VITALS: BP 136/70
--- NOTE | 2019-11-08 04:52 | NUR ---
PT SLEPT MOST OF SHIFT. ASSESMENT DOCUMENTED. MEDS GIVEN PER E-MAR. IV PATENT. NO REPORTS OF PAIN THIS SHIFT. PT REPOSITIONED THROUGH NIGHT. PT YELLING OUT IN SLEEP AT TIMES. FALL PRECAUTIONS IN PLACE. WILL CONTINUE WITH PLAN OF CARE.
[2019-11-08 06:09] LABS: HEMATOCRIT 43.1 % (37.0-47.0); HEMOGLOBIN 14.5 gm/dL (12.0-15.0); MCH 30.7 pg (26.0-34.0); MCHC 33.7 g/dL (28.0-37.0); MPV 7.8 fl. (7.2-11.1); RBC 4.73 mil/uL (4.20-5.00); RDW-CV 14.2 % (10.5-14.5); WBC 10.8 thou/uL (4.0-11.0)
[2019-11-08 06:20] LABS: CREATININE 0.9 mg/dL (0.6-1.3); MAGNESIUM 2.2 mg/dL (1.8-2.4); POTASSIUM 3.9 mmol/L (3.5-5.1)
[2019-11-08 08:00] VITALS: BP 126/61
[2019-11-08] MEDS ORDERED: CEFDINIR300 MG PO (11:12)
[2019-11-08] MEDS ORDERED: PULMICORT0.5 MG/2 M INH (11:12)
[2019-11-08] MEDS ORDERED: PREDNISONE 10 M10 MG PO (11:12)
[2019-11-08] MEDS ORDERED: DILTIAZEM 24HR180 M1 PO (11:12)
[2019-11-08] MEDS ORDERED: AZITHROMYCIN 2250 MG PO (11:12)
[2019-11-08] MEDS ORDERED: ELIQUIS5 MG PO (11:13)
[2019-11-08 12:00] VITALS: BP 102/57
--- NOTE | 2019-11-08 12:01 | NUR ---
FAXED DC ORDERS AND SUMMARY TO [facility]. [id number] WITH OLGA/MORENA THAT THE PATIENT WOULD BE ARRIVING BY AMBULANCE TODAY AT 15:00. [phone]. CALLED JAISON (DAUGHTER) AND LET HER KNOW THAT PATIENT WOULD BE DISCHARGED TODAY AND AMBULANCE WOULD PICK HER UP AT 3:00 PM.
[2019-11-08 12:35] VITALS: BP 126/61
--- NOTE | 2019-11-08 17:09 | NUR ---
VSS WITH THE EXCEPTION OF UNCONTROLLED AFIB, ORIENTED TO SELF TODAY, UNCONTINENT OF BOWEL, AVILES IN PLACE, BEDREST, REC DISCHARGE ORDERS, PATIENT WAS SENT BACK TO [facility], REPORT GIVEN TO PANFILO GARCIA, TELE MONITOR REMOVED, IV REMOVED WITHOUT COMPLICATION, AVILES CATHETER REMOVED. PATIENT TAKEN BY CART WITH EMS IN AMBULANCE. HOURLY ROUNDING PERFORMED, POSSESSIONS AND CALL LIGHT WITHIN REACH.
== END 2019-11-08 15:30 | DRG 177 ==
LOC: M.ERS 15:33 → M.TBA-ER 17:24 → M.2W 17:24
PROVIDERS: Internal Medicine; Personal Emergency Response Attendant; ADMIT Internal Medicine
PROC: 5A09357 Assistance with Respiratory Ventilation, Less than 24 Consecutive Hours, Continuous Positive Airway Pressure (ICD-10-PCS; principal; 2019-11-01)
DX: J15.6 Pneumonia due to other Gram-negative bacteria (principal); J96.21 Acute and chronic respiratory failure with hypoxia; R65.11 Systemic inflammatory response syndrome (SIRS) of non-infectious origin with acute organ dysfunction; I13.0 Hypertensive heart and chronic kidney disease with heart failure and stage 1 through stage 4 chronic kidney disease, or unspecified chronic kidney disease; N39.0 Urinary tract infection, site not specified; J44.1 Chronic obstructive pulmonary disease with (acute) exacerbation; I50.30 Unspecified diastolic (congestive) heart failure; J44.0 Chronic obstructive pulmonary disease with (acute) lower respiratory infection; I48.91 Unspecified atrial fibrillation; I07.1 Rheumatic tricuspid insufficiency; E78.5 Hyperlipidemia, unspecified; I25.10 Atherosclerotic heart disease of native coronary artery without angina pectoris; F20.9 Schizophrenia, unspecified; F03.90 Unspecified dementia, unspecified severity, without behavioral disturbance, psychotic disturbance, mood disturbance, and anxiety; G47.33 Obstructive sleep apnea (adult) (pediatric); B96.20 Unspecified Escherichia coli [E. coli] as the cause of diseases classified elsewhere; E78.00 Pure hypercholesterolemia, unspecified; E11.22 Type 2 diabetes mellitus with diabetic chronic kidney disease; N18.3 Chronic kidney disease, stage 3 (moderate); R79.1 Abnormal coagulation profile; M17.0 Bilateral primary osteoarthritis of knee; E03.9 Hypothyroidism, unspecified; E66.9 Obesity, unspecified; Z68.34 Body mass index [BMI] 34.0-34.9, adult; I25.2 Old myocardial infarction; Z79.899 Other long term (current) drug therapy; Z79.4 Long term (current) use of insulin; Z79.82 Long term (current) use of aspirin; Z91.81 History of falling; Z28.21 Immunization not carried out because of patient refusal

== ENCOUNTER 2019-11-25 18:19 | Emergency (ER) | payer MEDICARE, MEDICAID ==
[~2019-11-25] VITALS: Ht 165.1 cm; Wt 92.3 kg
[~2019-11-25 18:19] MED LIST changes: +AZITHROMYCIN 2250 MG PO; +CEFDINIR300 MG PO; +DILTIAZEM 24HR180 M1 PO; +ELIQUIS5 MG PO; +FLUPHENAZI25 MG/1 ML IM; +IPRAT-ALBUT 0.5-3 ML INH; +MUCINEX600 MG PO; +NYSTATIN1000000 UN TOP; +PREDNISONE 10 M10 MG PO; +PULMICORT0.5 MG/2 M INH; +VITAMIN D325 MC3 PO
[2019-11-25 19:08] LABS: ABSOLUTE BASOPHILS 0.1 thou/uL (0.0-0.2); ABSOLUTE EOSINOPHILS 0.2 thou/uL (0.0-0.7); ABSOLUTE LYMPHOCYTES 1.7 thou/uL (0.8-5.3); ABSOLUTE MONOCYTES 0.9 thou/uL (0.0-1.2); ABSOLUTE NEUTROPHILS 4.3 thou/uL (1.6-8.1); BASOPHILS 0.8 %; EOSINOPHILS 2.9 %; HEMATOCRIT 40.5 % (37.0-47.0); HEMOGLOBIN 13.7 gm/dL (12.0-15.0); LYMPHOCYTES 23.5 %; MCH 31.5 pg (26.0-34.0); MCV 92.8 fL (80.0-100.0); MONOCYTES 12.6 %; MPV 7.9 fl. (7.2-11.1); NUCLEATED RBCS 0 /100WBC; PLATELET COUNT* 275 thou/uL (150-400); POLYS 60.2 %; RBC 4.36 mil/uL (4.20-5.00); RDW-CV 15.1 % (10.5-14.5); WBC 7.1 thou/uL (4.0-11.0)
[2019-11-25 19:19] LABS: CALCIUM 9.3 mg/dL (8.5-10.1); CREATININE 1.3 mg/dL (0.6-1.3)
[2019-11-25 19:30] LABS: ALBUMIN 3.5 g/dL (3.4-5.0); MAGNESIUM 1.7 mg/dL (1.8-2.4); TOTAL BILIRUBIN 0.2 mg/dL (<0.1-1.0); TOTAL PROTEIN 7.8 g/dL (6.4-8.2)
[2019-11-25 19:48] LABS: INFLUENZA A ANTIGEN Positive (Negative); INFLUENZA B ANTIGEN Negative (Negative)
[2019-11-26] MEDS ORDERED: TAMIFLU75 MG PO (01:05)
[2019-11-26 01:55] VITALS: BP 108/52
--- NOTE | 2019-11-26 12:34 | EKG ---
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: : 1935 Requested By: Ramiro Rae Order Number: [id number] MD: Billy Landeros Measurements Intervals [place] Rate: 68 P: MD: QRS: -40 QRSD: 114 T: 69 QT: 400 QTc: 426 Interpretive Statements Atrial fibrillation Incomplete right bundle branch block artifact noted Inferior infarct, old Lateral leads are also involved Compared to ECG 11/06/2019 19:28:57 rate slowed Electronically Signed On 11-26-2019 12:33:31 CDT by Billy Landeros [email or web address] <ELECTRONICALLY SIGNED> By: Billy Landeros MD, [facility] 11/26/19 1233 1824 1824 Billy Landeros MD, [facility] /EPI
== END 2019-11-26 01:55 | disposition home or self-care (01) ==
LOC: M.ERS 18:19
PROVIDERS: Emergency Medicine Emergency Medical Services
DX: J10.1 Influenza due to other identified influenza virus with other respiratory manifestations (principal); R07.89 Other chest pain; I10 Essential (primary) hypertension; I25.10 Atherosclerotic heart disease of native coronary artery without angina pectoris; I25.2 Old myocardial infarction; E78.5 Hyperlipidemia, unspecified; F20.9 Schizophrenia, unspecified; Z79.82 Long term (current) use of aspirin; Z79.4 Long term (current) use of insulin; Z79.899 Other long term (current) drug therapy

== ENCOUNTER 2020-07-12 11:50 | Inpatient (IN) | payer MEDICARE, MEDICAID ==
[~2020-07-12] VITALS: Ht 160 cm; Wt 94.8 kg
[~2020-07-12 11:50] MED LIST changes: +TAMIFLU75 MG PO
[2020-07-12 11:54] VITALS: BP 134/70
[2020-07-12] MEDS ORDERED: DIVALPROEX SOD125 M1 PO (11:56)
[2020-07-12] MEDS ORDERED: MELATONIN10 M3 PO (11:58)
[2020-07-12] MEDS ORDERED: FLORANEX TABLE1 EACH PO (12:01)
[2020-07-12 12:22] LABS: ABSOLUTE BASOPHILS 0.1 thou/uL (0.0-0.2); ABSOLUTE EOSINOPHILS 0.1 thou/uL (0.0-0.7); ABSOLUTE LYMPHOCYTES 1.8 thou/uL (0.8-5.3); ABSOLUTE NEUTROPHILS 6.6 thou/uL (1.6-8.1); BASOPHILS 1.3 %; EOSINOPHILS 1.5 %; HEMATOCRIT 39.4 % (37.0-47.0); LYMPHOCYTES 18.5 %; MCH 31.7 pg (26.0-34.0); MCHC 33.1 g/dL (28.0-37.0); MCV 95.9 fL (80.0-100.0); MONOCYTES 10.6 %; MPV 7.7 fl. (7.2-11.1); NUCLEATED RBCS 0 /100WBC; PLATELET COUNT* 278 thou/uL (150-400); POLYS 68.1 %; RBC 4.11 mil/uL (4.20-5.00); RDW-CV 13.2 % (10.5-14.5); WBC 9.7 thou/uL (4.0-11.0)
[2020-07-12 12:32] LABS: CALCIUM 8.9 mg/dL (8.5-10.1); CREATININE 1.5 mg/dL (0.6-1.3); POTASSIUM 5.1 mmol/L (3.5-5.1)
[2020-07-12 12:44] LABS: ALBUMIN 3.4 g/dL (3.4-5.0); TOTAL BILIRUBIN 0.2 mg/dL (<0.1-1.0); TOTAL PROTEIN 7.5 g/dL (6.4-8.2)
[2020-07-12 14:47] LABS: URINE BILIRUBIN NEGATIVE (Negative); URINE BLOOD NEGATIVE (Negative); URINE CLARITY CLEAR; URINE COLOR YELLOW; URINE GLUCOSE-RANDOM NEGATIVE (Negative); URINE KETONES NEGATIVE (Negative); URINE LEUKOCYTES-REFLEX NEGATIVE (Negative); URINE NITRITE-REFLEX NEGATIVE (Negative); URINE PROTEIN NEGATIVE (Negative); URINE UROBILINOGEN 0.2 E.U./dl (0.2-1.0)
[2020-07-12 15:55] VITALS: BP 135/60
[2020-07-12 16:15] VITALS: BP 137/67
--- NOTE | 2020-07-12 16:45 | EKG ---
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 : 1935 Requested By: Ramiro Rae Order Number: [id number] MD: Abdullahi Kiser Measurements Intervals [place] Rate: 59 P: -15 [place]: 199 QRS: -31 QRSD: 100 T: 57 QT: 409 QTc: 406 Interpretive Statements Sinus rhythm Left axis deviation Low voltage, precordial leads RSR' in V1 or V2, right VCD Baseline wander in lead(s) II,III,aVF Compared to ECG 11/25/2019 18:24:31 Low QRS voltage now present RSR' in V1 or V2 now present Atrial fibrillation no longer present Myocardial infarct finding no longer present Electronically Signed On 07-12-2020 16:45:30 CDT by Abdullahi Kiser [email or web address] <ELECTRONICALLY SIGNED> By: Abdullahi Kiser MD, [facility] 07/12/20 1645 120 Abdullahi Kiser MD, [facility] /EPI
[2020-07-12 20:15] VITALS: BP 109/50
[2020-07-13 00:15] VITALS: BP 109/50
[2020-07-13 04:56] VITALS: BP 100/44
[2020-07-13 05:45] LABS: HEMATOCRIT 35.1 % (37.0-47.0); HEMOGLOBIN 11.5 gm/dL (12.0-15.0); MCH 31.3 pg (26.0-34.0); MCHC 32.7 g/dL (28.0-37.0); MCV 95.8 fL (80.0-100.0); MPV 7.9 fl. (7.2-11.1); RBC 3.66 mil/uL (4.20-5.00); RDW-CV 13.3 % (10.5-14.5); WBC 7.7 thou/uL (4.0-11.0)
[2020-07-13 06:00] LABS: ALBUMIN 2.9 g/dL (3.4-5.0); CALCIUM 8.1 mg/dL (8.5-10.1); CREATININE 1.3 mg/dL (0.6-1.3); TOTAL BILIRUBIN 0.3 mg/dL (<0.1-1.0); TOTAL PROTEIN 6.4 g/dL (6.4-8.2)
[2020-07-13 08:00] VITALS: BP 128/80
[2020-07-13 13:07] VITALS: BP 115/57
[2020-07-13 17:20] VITALS: BP 126/66
[2020-07-14 00:31] VITALS: BP 119/50
[2020-07-14 04:27] VITALS: BP 109/59
[2020-07-14 08:00] VITALS: BP 138/72
[2020-07-14 09:59] LABS: HEMATOCRIT 36.3 % (37.0-47.0); HEMOGLOBIN 11.9 gm/dL (12.0-15.0); MCH 31.6 pg (26.0-34.0); MCHC 32.8 g/dL (28.0-37.0); MCV 96.2 fL (80.0-100.0); MPV 7.9 fl. (7.2-11.1); RBC 3.78 mil/uL (4.20-5.00); RDW-CV 13.4 % (10.5-14.5); WBC 11.7 thou/uL (4.0-11.0)
[2020-07-14 10:03] LABS: CALCIUM 8.7 mg/dL (8.5-10.1); CREATININE 1.3 mg/dL (0.6-1.3); MAGNESIUM 1.9 mg/dL (1.8-2.4); POTASSIUM 4.8 mmol/L (3.5-5.1)
[2020-07-14 19:50] VITALS: BP 112/49
[2020-07-15] VITALS: BP 108/51
[2020-07-15 04:35] LABS: HEMATOCRIT 32.4 % (37.0-47.0); HEMOGLOBIN 10.9 gm/dL (12.0-15.0); MCH 32.2 pg (26.0-34.0); MCHC 33.8 g/dL (28.0-37.0); MCV 95.2 fL (80.0-100.0); MPV 7.7 fl. (7.2-11.1); RBC 3.4 mil/uL (4.20-5.00); RDW-CV 13.1 % (10.5-14.5); WBC 8.1 thou/uL (4.0-11.0)
[2020-07-15 05:00] LABS: CALCIUM 8.6 mg/dL (8.5-10.1); CREATININE 1.3 mg/dL (0.6-1.3); POTASSIUM 4.4 mmol/L (3.5-5.1)
[2020-07-15 08:33] VITALS: BP 121/57
[2020-07-15 16:06] VITALS: BP 123/66
--- NOTE | 2020-07-15 16:55 | 2DMMODE ---
[place] [address] 2 D/M-MODE ECHOCARDIOGRAM Name: BELTRAN MCQUEEN Room: [address] IN .R.#: [id number] Admission: 07/12/20 Attend Phys: Adelina Gould, Discharge: Date of : 35 Date of Service: 07/15/20 1655 Report #: [id number] THIS REPORT FOR: cc: Sorin Yanez MD, Dennis R MD Holkins,Abdullahi Stacy MD [facility] ~ APPROVED REPORT Study performed: 07/15/2020 09:37:39 EXAM: Comprehensive 2D, Doppler, and color-flow Echocardiogram Patient Location: Bedside BSA: 1.97 HR: 67 bpm BP: 121/57 mmHg Other Information Study Quality: Fair Indications Congestive Heart Failure 2D Dimensions IVSd: 11.39 (7-11mm) LVOT Diam: 19.81 (18-24mm) LVDd: 38.65 mm PWd: 10.04 (7-11mm) Ascending Ao: 31.26 (22-36mm) LVDs: 24.88 (25-40mm) Aortic Root: 29.37 mm Volumes Left Atrial Volume (Systole) LA ESV Index: 24.50 mL/m2 Aortic Valve AoV Peak Adilson.: 1.08 m/s AO Peak Gr.: 4.66 mmHg LVOT Max P.30 mmHg AO Mean Gr.: 2.89 mmHg LVOT Mean P.90 mmHg LVOT Max V: 0.76 m/s AO V2 VTI: 21.64 cm LVOT Mean V: 0.42 m/s EVAN (VTI): 1.77 cm2 LVOT V1 VTI: 12.40 cm Mitral Valve E/A Ratio: 0.69 [place] [address] 2 D/M-MODE ECHOCARDIOGRAM Name: BELTRAN MCQUEEN Room: [address] IN [facility]#: [id number] Admission: 07/12/20 Attend Phys: Adelina Gould, Discharge: Date of : 35 Date of Service: 07/15/20 0055 Report #: [id number] MV Decel. Time: 150.56 ms MV E Max Adilson.: 0.55 m/s MV PHT: 43.66 ms MVA (PHT): 5.04 cm2 TDI E/Lateral E': 5.00 E/Medial E': 6.11 Medial E' Adilson.: 0.09 m/s Lateral E' Adilson.: 0.11 m/s Pulmonary Valve PV Peak Adilson.: 0.84 m/s PV Peak Gr.: 2.84 mmHg Tricuspid Valve RAP Estimate: 5.00 mmHg TR Peak Gr.: 10.29 mmHg RVSP: 15.29 mmHg PA Pressure: 15.29 mmHg Left Ventricle The left ventricle is normal size. There is normal LV segmental wall motion. There is normal left ventricular wall thickness. Left ventricular systolic function is normal. The left ventricular ejection fraction is within the normal range. LVEF is 60-65%. Grade I - abnormal relaxation pattern. Right Ventricle The right ventricle is normal size. The right ventricular systolic function is normal. Atria The left atrium size is normal. The right atrium size is normal. Aortic Valve The aortic valve is normal in structure. No aortic regurgitation is present. There is no aortic valvular stenosis. Mitral Valve Moderate mitral annular calcification. There is no mitral valve regurgitation noted. No evidence of mitral valve stenosis. Tricuspid Valve The tricuspid valve is normal in structure. Trace tricuspid regurgitation. [place] [address] 2 D/M-MODE ECHOCARDIOGRAM Name: BELTRAN MCQUEEN Room: [address]#: [id number] Admission: 07/12/20 Attend Phys: Adelina Gould, Discharge: Date of : 35 Date of Service: 07/15/20 1655 Report #: [id number] The pulmonary valve is normal in structure. Trace pulmonic regurgitation. Great Vessels The aortic root is normal in size. IVC is not visualized. Pericardium There is no pericardial effusion. <Conclusion> The left ventricle is normal size. There is normal left ventricular wall thickness. Left ventricular systolic function is normal. The left ventricular ejection fraction is within the normal range. LVEF is 60-65%. Grade I - abnormal relaxation pattern. The right ventricle is normal size. The left atrium size is normal. The aortic valve is normal in structure. Moderate mitral annular calcification. There is no mitral valve regurgitation noted. No evidence of mitral valve stenosis. The tricuspid valve is normal in structure. There is no pericardial effusion. There is normal LV segmental wall motion. <ELECTRONICALLY SIGNED> By: Abdullahi Kiser MD, FACC 07/15/201654 54 54 Abdullahi Kiser MD, FACC /INF
[2020-07-15 23:07] VITALS: BP 104/43
[2020-07-16 04:16] LABS: HEMATOCRIT 33.9 % (37.0-47.0); HEMOGLOBIN 11.2 gm/dL (12.0-15.0); MCH 31.8 pg (26.0-34.0); MCHC 33.2 g/dL (28.0-37.0); MPV 7.9 fl. (7.2-11.1); RBC 3.53 mil/uL (4.20-5.00); RDW-CV 13.1 % (10.5-14.5); WBC 9.8 thou/uL (4.0-11.0)
[2020-07-16 04:32] LABS: ALBUMIN 2.8 g/dL (3.4-5.0); CALCIUM 8.4 mg/dL (8.5-10.1); CREATININE 1.4 mg/dL (0.6-1.3); MAGNESIUM 1.7 mg/dL (1.8-2.4); POTASSIUM 4.2 mmol/L (3.5-5.1); TOTAL BILIRUBIN 0.3 mg/dL (<0.1-1.0); TOTAL PROTEIN 6.5 g/dL (6.4-8.2)
[2020-07-16 08:00] VITALS: BP 111/35
[2020-07-16 15:30] VITALS: BP 126/60
[2020-07-16 20:30] VITALS: BP 102/34
[2020-07-17 04:13] LABS: HEMATOCRIT 34.4 % (37.0-47.0); HEMOGLOBIN 11.3 gm/dL (12.0-15.0); MCH 31.6 pg (26.0-34.0); MCHC 32.9 g/dL (28.0-37.0); MCV 95.9 fL (80.0-100.0); MPV 7.7 fl. (7.2-11.1); RBC 3.59 mil/uL (4.20-5.00); RDW-CV 13.3 % (10.5-14.5); WBC 9.6 thou/uL (4.0-11.0)
[2020-07-17 04:31] LABS: ALBUMIN 2.7 g/dL (3.4-5.0); CALCIUM 8.7 mg/dL (8.5-10.1); CREATININE 1.2 mg/dL (0.6-1.3); MAGNESIUM 1.8 mg/dL (1.8-2.4); POTASSIUM 4.4 mmol/L (3.5-5.1); TOTAL BILIRUBIN 0.3 mg/dL (<0.1-1.0); TOTAL PROTEIN 6.6 g/dL (6.4-8.2)
[2020-07-17 07:44] VITALS: BP 108/45
[2020-07-17 16:33] VITALS: BP 102/57
[2020-07-17 20:00] VITALS: BP 123/62
[2020-07-18 05:16] LABS: HEMATOCRIT 35.2 % (37.0-47.0); HEMOGLOBIN 11.4 gm/dL (12.0-15.0); MCH 31.2 pg (26.0-34.0); MCHC 32.4 g/dL (28.0-37.0); MCV 96.2 fL (80.0-100.0); RBC 3.66 mil/uL (4.20-5.00); RDW-CV 13.2 % (10.5-14.5); WBC 7.9 thou/uL (4.0-11.0)
[2020-07-18 05:28] LABS: CALCIUM 8.9 mg/dL (8.5-10.1); CREATININE 1.1 mg/dL (0.6-1.3); MAGNESIUM 1.8 mg/dL (1.8-2.4); POTASSIUM 4.1 mmol/L (3.5-5.1)
[2020-07-18 08:15] VITALS: BP 136/63
[2020-07-18 09:57] VITALS: BP 136/63
== END 2020-07-18 15:35 | DRG 177 ==
LOC: M.ERS 11:50 → M.2W 13:41 → M.ORTHSURG 13:41 → M.TBA-ER 13:41 → M.2W 16:10 → M.ORTHSURG 07-15 08:05
PROVIDERS: Emergency Medicine Emergency Medical Services; ADMIT Internal Medicine; ATTEND Internal Medicine
DX: J15.6 Pneumonia due to other Gram-negative bacteria (principal); K55.039 Acute (reversible) ischemia of large intestine, extent unspecified; J96.01 Acute respiratory failure with hypoxia; I50.33 Acute on chronic diastolic (congestive) heart failure; K92.2 Gastrointestinal hemorrhage, unspecified; I13.0 Hypertensive heart and chronic kidney disease with heart failure and stage 1 through stage 4 chronic kidney disease, or unspecified chronic kidney disease; L03.116 Cellulitis of left lower limb; L03.115 Cellulitis of right lower limb; I48.20 Chronic atrial fibrillation, unspecified; Z20.828 Contact with and (suspected) exposure to other viral communicable diseases; I25.10 Atherosclerotic heart disease of native coronary artery without angina pectoris; K64.9 Unspecified hemorrhoids; E78.5 Hyperlipidemia, unspecified; F20.9 Schizophrenia, unspecified; D64.9 Anemia, unspecified; I25.2 Old myocardial infarction; Z79.899 Other long term (current) drug therapy

== ENCOUNTER 2021-03-26 14:01 | Inpatient (IN) | payer MEDICARE, MEDICAID ==
[~2021-03-26] VITALS: Ht 144.8 cm; Wt 99.5 kg
[~2021-03-26 14:01] MED LIST changes: +DIVALPROEX SOD125 M1 PO; +FLORANEX TABLE1 EACH PO; +MELATONIN10 M3 PO
[2021-03-26 14:15] VITALS: BP 162/77
[2021-03-26] MEDS ORDERED: ABHR (14:15)
--- NOTE | 2021-03-26 14:19 | NUR ---
PERMISSION TO TREAT OBTAINED BY ANY RN AND ROBYN WHITTAKER FROM PT DPOA.
[2021-03-26 14:40] LABS: ABSOLUTE BASOPHILS 0.1 thou/uL (0.0-0.2); ABSOLUTE LYMPHOCYTES 1.1 thou/uL (0.8-5.3); ABSOLUTE MONOCYTES 1.9 thou/uL (0.0-1.2); ABSOLUTE NEUTROPHILS 4.9 thou/uL (1.6-8.1); BASOPHILS 0.8 %; EOSINOPHILS 0.3 %; HEMOGLOBIN 10.8 gm/dL (12.0-15.0); LYMPHOCYTES 14.1 %; MCH 27.3 pg (26.0-34.0); MCHC 32.6 g/dL (28.0-37.0); MCV 83.6 fL (80.0-100.0); MONOCYTES 24.1 %; MPV 8.3 fl. (7.2-11.1); NUCLEATED RBCS 0 /100WBC; PLATELET COUNT* 246 thou/uL (150-400); POLYS 60.7 %; RBC 3.95 mil/uL (4.20-5.00); RDW-CV 15.8 % (10.5-14.5); WBC 8.1 thou/uL (4.0-11.0)
[2021-03-26 14:50] LABS: CALCIUM 8.1 mg/dL (8.5-10.1); CREATININE 1.2 mg/dL (0.6-1.3); POTASSIUM 4.4 mmol/L (3.5-5.1)
[2021-03-26 15:01] LABS: ALBUMIN 3.1 g/dL (3.4-5.0); TOTAL BILIRUBIN 0.2 mg/dL (<0.1-1.0); TOTAL PROTEIN 7.5 g/dL (6.4-8.2)
[2021-03-26 15:12] LABS: PLATELET ESTIMATE ADEQUATE
[2021-03-26 19:45] VITALS: BP 130/66
[2021-03-26 21:09] VITALS: BP 130/66
[2021-03-26 22:30] VITALS: BP 116/46
--- NOTE | 2021-03-26 22:30 | NUR ---
RECEIVED REPORT FROM ER, PT TO ROOM PER BED AT 2100. ASSESSMENT COMPLETED AT THIS TIME. PT ALERT ORIENTED TO NAME ONLY, COOPERATIVE. TELEMETRY ON SHOWING SR WITH PAC. SL RESTARTED WITHOUT DIFFICULTY. ZEHRA LOWER LEGS/ANKLES/FEET WITH 3+ EDEMA, RED AND WARM, ELEVATED ON PILLOW. BUTTOCKS PURPLISH IN COLOR. AVILES PATENT. PT ASKING FOR WATER AND DRINKS WELL. PLACED IN COVID ISOLATION. SEE ADMISSION ASSESSMENT AND HX. WILL CONT TO MONITOR AND ASSIST NEEDED.
[2021-03-27 04:00] VITALS: BP 132/62
[2021-03-27 05:14] LABS: ABSOLUTE MONOCYTES 0.5 thou/uL (0.0-1.2); ABSOLUTE NEUTROPHILS 5.4 thou/uL (1.6-8.1); BASOPHILS 0.2 %; HEMATOCRIT 30.8 % (37.0-47.0); LYMPHOCYTES 14.4 %; MCH 27.2 pg (26.0-34.0); MCHC 32.5 g/dL (28.0-37.0); MCV 83.6 fL (80.0-100.0); MONOCYTES 7.5 %; MPV 8.3 fl. (7.2-11.1); NUCLEATED RBCS 0 /100WBC; PLATELET COUNT* 229 thou/uL (150-400); POLYS 77.9 %; RBC 3.69 mil/uL (4.20-5.00); RDW-CV 15.7 % (10.5-14.5)
[2021-03-27 05:25] LABS: APTT 30.2 Seconds (25.0-31.3); INR 1.1; PROTIME 11.3 Seconds (9.20-11.50)
[2021-03-27 05:30] LABS: ALBUMIN 2.8 g/dL (3.4-5.0); CALCIUM 7.7 mg/dL (8.5-10.1); CREATININE 1.3 mg/dL (0.6-1.3); MAGNESIUM 1.6 mg/dL (1.8-2.4); POTASSIUM 4.4 mmol/L (3.5-5.1); TOTAL BILIRUBIN 0.2 mg/dL (<0.1-1.0)
--- NOTE | 2021-03-27 07:12 | NUR ---
SLEPT WELL TONIGHT. REPOSITIONED Q 2HR. NO CHANGE IN ASSESSMENT. PT YELLING OUT OCC AND STATING NO ONE IS TAKING CARE OF HER, REASSURANCE GIVEN. TELEMETRY CONT TO SHOW SR WITH OCC PAC. HS GOALS OF REST AND SAFETY. HOURLY ROUNDING OBSERVED. REMAINS IN ISOLATION
--- NOTE | 2021-03-27 11:40 | EKG ---
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 : 1935 Requested By: Austin Pierre Order Number: [id number] MD: Jez Starks Measurements Intervals [place] Rate: 95 P: 28 [place]: 186 QRS: -33 QRSD: 118 T: 54 QT: 357 QTc: 449 Interpretive Statements Sinus rhythm Incomplete right bundle branch block Low voltage, precordial leads Abnormal lateral Q waves Compared to ECG 07/12/2020 12:06:04 Incomplete right bundle-branch block now present Q waves now present Left-axis deviation no longer present Electronically Signed On 03-27-2021 11:40:44 CDT by Jez Starks [email or web address] <ELECTRONICALLY SIGNED> By: Jez Starks MD, [facility] 03/27/21 1140 1426 1426 Jez Starks MD, [facility] /EPI
[2021-03-27 12:00] VITALS: BP 148/78
--- NOTE | 2021-03-27 13:46 | NUR ---
SPOKE TO PTLavonne SHEPHERD. UPDATE GIVEN.
--- NOTE | 2021-03-27 14:51 | NUR ---
CM ASSESSMENT: PT COVID POSITIVE AND CURRENTLY UNDER ENHANCED PRECAUTIONS. REVIEW OF PT'S CHART INFORMS THAT THE PT RESIDES AT [facility]. PT IS DEPENDENT WITH ADL'S, AND IS W/C BOUND. [facility] PRIZE FIGHTER INFORMS THAT THE PT DID NOT RECIEVE THE COVID VACCINE AND HAD REFUSED TO TAKE THE VACCINE ON 3 DIFFERENT OCCATIONS, DESPITE FACILITY AND FAMILY ENCOURAGMENT. PT HAD BEEN TESTED FOR COVID WEEKLY SINCE SHE DECLINED THE VACCINE. INFECTION CONTROL AND PHYSICIAN INFORMED OF THIS. OG PRIZE FIGHTER INFORM OF ABILITY TO ACCEPT THE PT WHEN READY TO D/C, BUT WILL QUARANTINE PT UPON HER RETURN AND HER FAMILY HAS BEEN INFORMED OF THIS. CM WILL REMAIN AVAILABLE TO ASSIST AND FOLLOW NEEDED.
[2021-03-27 16:00] VITALS: BP 135/62
--- NOTE | 2021-03-27 20:00 | NUR ---
RECEIVED REPORT AND ASSUMED CARE OF PT, ASSESSMENT COMPLETED. PT ALERT AND UPSET BECAUSE SHE HAS NOT GOTTEN THE PIZZA THAT SHE WANTS. EXPLAINED PAST SUPPER TIME AND HAS A DIFFICULT TIME SWALLOWING-MECHANICAL GROUND MEATS. O2 ON AT 3L/NC, HOB ELEVATED. ZEHRA LOWER LEGS/ANKLES/FEET WITH 3+ EDEMA, ELEVATED ON PILLOW. PT DOES ASSIST WITH REPOSITIONING BY PULLING ON THE RAIL WHEN TOLD SO. PT ASKING FOR BEDPAN AND PLACED. PASSING FLATUS BY NO STOOL AT THIS TIME. INCONT OF WATERY LIQUID. TELEMETRY ON SHOWING A-FIB WITH BBB. WILL CONT TO MONITOR AND ASSIST NEEDED.
[2021-03-27 20:30] VITALS: BP 130/92
[2021-03-28] VITALS: BP 103/45
[2021-03-28 03:40] VITALS: BP 104/48
--- NOTE | 2021-03-28 06:30 | NUR ---
AWAKE OCC DURING NIGHT. REPOSITIONED Q 2HR. PT ASKING FOR BEDPAN BUT INCONT OF CL MUCOUSY STOOLS AND PASSING FLATUS. PT HOLDING HER BREATH AND FACE TURNING RED. DURING THIS TIME HR INCREASES INTO 140'S. O2 REMAINS ON AT 3L/NC. TAKING PO FLUIDS WELL. HS GOALS OF REST AND SAFETY ACHIEVED. HOURLY ROUNDING OBSERVED. REMAINS IN COVID ISOLATION
[2021-03-28 08:09] LABS: ABSOLUTE LYMPHOCYTES 1.2 thou/uL (0.8-5.3); ABSOLUTE MONOCYTES 1.9 thou/uL (0.0-1.2); ABSOLUTE NEUTROPHILS 9.5 thou/uL (1.6-8.1); BASOPHILS 0.1 %; HEMATOCRIT 31.4 % (37.0-47.0); HEMOGLOBIN 10.2 gm/dL (12.0-15.0); LYMPHOCYTES 9.6 %; MCH 26.7 pg (26.0-34.0); MCHC 32.6 g/dL (28.0-37.0); MCV 82.1 fL (80.0-100.0); MONOCYTES 14.9 %; MPV 8.3 fl. (7.2-11.1); NUCLEATED RBCS 0 /100WBC; PLATELET COUNT* 246 thou/uL (150-400); POLYS 75.4 %; RBC 3.82 mil/uL (4.20-5.00); RDW-CV 15.6 % (10.5-14.5); WBC 12.6 thou/uL (4.0-11.0)
[2021-03-28 08:23] LABS: ALBUMIN 2.7 g/dL (3.4-5.0); CALCIUM 7.6 mg/dL (8.5-10.1); CREATININE 1.2 mg/dL (0.6-1.3); MAGNESIUM 2.2 mg/dL (1.8-2.4); POTASSIUM 4.2 mmol/L (3.5-5.1); TOTAL BILIRUBIN 0.2 mg/dL (<0.1-1.0); TOTAL PROTEIN 6.8 g/dL (6.4-8.2)
[2021-03-28 12:00] VITALS: BP 121/67
--- NOTE | 2021-03-28 15:24 | NUR ---
PLAN OF CARE: PHYSICIAN INFORMS THAT THE PT IS MEDICALLY STABLE TO D/C TO INPT ARU. INSURANCE AUTH REMAINS PENDING AT THIS TIME. CM WILL REMAIN AVAILABLE TO ASSIST AND FOLLOW NEEDED.
--- NOTE | 2021-03-28 15:25 | NUR ---
PLAN OF CARE: PHYSICIAN INFORMS THAT THE PT WILL LIKELY BE HERE THRU THE WEEKEND. PT COVID POSITIVE AND REMAINS UNDER ENHANCED PRECAUTIONS. IF PT READY TO D/C OVER THE WEEKEND PLEASE CONTACT [facility] AND FAX D/C ORDERS. CM WILL REMAIN AVAILABLE TO ASSIST AND FOLLOW NEEDED. [facility] PHONE: [phone] FAX: [phone]
--- NOTE | 2021-03-28 15:54 | EKG ---
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 : 1935 Requested By: Itz Alvarez Order Number: [id number] MD: Billy Landeros Measurements Intervals [place] Rate: 115 P: 30 CO: 147 QRS: -29 QRSD: 127 T: 5 QT: 358 QTc: 496 Interpretive Statements Sinus tachycardia Atrial premature complexes Right bundle branch block Inferior infarct, old Compared to ECG 03/26/2021 14:26:07 Atrial premature complex(es) now present Sinus rhythm no longer present Electronically Signed On 03-28-2021 15:54:15 CDT by Billy Landeros [email or web address] <ELECTRONICALLY SIGNED> By: Billy Landeros MD, [facility] 03/28/21 1554 0852 0852 Billy Landeros MD, [facility] /EPI
[2021-03-28 16:00] VITALS: BP 99/42
[2021-03-28 20:00] VITALS: BP 123/48
[2021-03-29 00:51] VITALS: BP 114/57
[2021-03-29 03:53] VITALS: BP 120/62
[2021-03-29 07:07] LABS: ABSOLUTE LYMPHOCYTES 1.3 thou/uL (0.8-5.3); ABSOLUTE MONOCYTES 1.9 thou/uL (0.0-1.2); ABSOLUTE NEUTROPHILS 8.7 thou/uL (1.6-8.1); BASOPHILS 0.2 %; HEMATOCRIT 32.3 % (37.0-47.0); HEMOGLOBIN 10.4 gm/dL (12.0-15.0); MCH 26.7 pg (26.0-34.0); MCHC 32.2 g/dL (28.0-37.0); MCV 82.8 fL (80.0-100.0); MONOCYTES 15.8 %; MPV 8.2 fl. (7.2-11.1); NUCLEATED RBCS 0 /100WBC; PLATELET COUNT* 259 thou/uL (150-400); RDW-CV 15.8 % (10.5-14.5); WBC 11.9 thou/uL (4.0-11.0)
--- NOTE | 2021-03-29 07:09 | NUR ---
ASSUMED CARE OF PT AFTER REPORT AT 1930. PT A&OX1. CONFUSED. VSS. PHYSICAL ASSESSMENT COMPLETED AND CHARTED. PT ON O2 AT 3L NC. PT TRACINGSR/SB ON TELE. PT TURNED TO SIDES. PT COMPLAINED OF GENERALIZED BODY PAIN-MED GIVEN PER MAR. MAINTAINED ON ENHANCED PRECAUTION. FALL PRECAUTIONS IN PLACE. CALL LIGHT WITHIN REACH.
[2021-03-29 07:15] LABS: CALCIUM 7.8 mg/dL (8.5-10.1); CREATININE 1.1 mg/dL (0.6-1.3); POTASSIUM 4.3 mmol/L (3.5-5.1); TOTAL BILIRUBIN 0.3 mg/dL (<0.1-1.0); TOTAL PROTEIN 7.1 g/dL (6.4-8.2)
[2021-03-29 09:00] VITALS: BP 120/62
[2021-03-29 13:05] VITALS: BP 142/73
[2021-03-29 15:00] VITALS: BP 101/63
--- NOTE | 2021-03-29 18:53 | NUR ---
pt alert, oriented to self only with confusion. on 3l NC, had a c/o headache this morning and was given PRN tylenol per NOV that was effective.
[2021-03-29 20:00] VITALS: BP 113/74
[2021-03-30 00:25] VITALS: BP 120/43
[2021-03-30 04:00] VITALS: BP 129/61
[2021-03-30 04:40] LABS: ABSOLUTE BASOPHILS 0.1 thou/uL (0.0-0.2); ABSOLUTE LYMPHOCYTES 1.3 thou/uL (0.8-5.3); ABSOLUTE MONOCYTES 1.6 thou/uL (0.0-1.2); ABSOLUTE NEUTROPHILS 7.3 thou/uL (1.6-8.1); BASOPHILS 0.6 %; HEMATOCRIT 32.7 % (37.0-47.0); HEMOGLOBIN 10.6 gm/dL (12.0-15.0); LYMPHOCYTES 12.4 %; MCHC 32.6 g/dL (28.0-37.0); MCV 82.8 fL (80.0-100.0); MONOCYTES 15.3 %; NUCLEATED RBCS 0 /100WBC; PLATELET COUNT* 254 thou/uL (150-400); POLYS 71.7 %; RBC 3.95 mil/uL (4.20-5.00); RDW-CV 15.8 % (10.5-14.5); WBC 10.2 thou/uL (4.0-11.0)
[2021-03-30 05:02] LABS: CALCIUM 7.9 mg/dL (8.5-10.1); CREATININE 1.2 mg/dL (0.6-1.3); POTASSIUM 4.2 mmol/L (3.5-5.1); TOTAL BILIRUBIN 0.3 mg/dL (<0.1-1.0); TOTAL PROTEIN 6.6 g/dL (6.4-8.2)
--- NOTE | 2021-03-30 06:08 | NUR ---
ASSUMED CARE OF PT AFTER REPORT AT 1930. PT A&OX1. CONFUSED. VSS. PHYSICAL ASSESSMENT COMPLETED AND CHARTED. PT ON O2 AT 2LNC. PT TRACING SR/BBB ON TELE. PT TURNED TO SIDES. PT DENIES ANY PAIN. FALL PRECAUTIONS IN PLACE. CALL LIGHT WITHIN REACH.
[2021-03-30 08:00] VITALS: BP 148/59
[2021-03-30 11:58] VITALS: BP 113/56
[2021-03-30 15:58] VITALS: BP 135/62
--- NOTE | 2021-03-30 17:35 | NUR ---
ASSUMED PT CARE AT 0730, PT AOX1-2, SOMETIMES KNOWS SHE'S IN THE HOSPITAL. PT BEING TURNED Q2H, INCONTINENT OF BM AND CLEANED UP MULTIPLE TIMES TODAY. PT CONFUSED AND PULLED OUT IV TODAY, NEW IV PLACED AND WORKING WELL. NOTABLE TREMORS, PT GOAL IS TO REMAIN FREE FROM SKIN BREAKDOWN.
[2021-03-30 20:00] VITALS: BP 147/63
[2021-03-31 00:26] VITALS: BP 111/52
[2021-03-31 04:00] VITALS: BP 105/66
[2021-03-31 04:23] LABS: ABSOLUTE LYMPHOCYTES 0.8 thou/uL (0.8-5.3); ABSOLUTE MONOCYTES 1.2 thou/uL (0.0-1.2); ABSOLUTE NEUTROPHILS 5.7 thou/uL (1.6-8.1); HEMATOCRIT 29.7 % (37.0-47.0); LYMPHOCYTES 10.7 %; MCH 27.5 pg (26.0-34.0); MCHC 33.5 g/dL (28.0-37.0); MCV 82.1 fL (80.0-100.0); MONOCYTES 15.6 %; MPV 8.1 fl. (7.2-11.1); NUCLEATED RBCS 0 /100WBC; PLATELET COUNT* 240 thou/uL (150-400); POLYS 73.7 %; RBC 3.62 mil/uL (4.20-5.00); RDW-CV 15.6 % (10.5-14.5); WBC 7.8 thou/uL (4.0-11.0)
[2021-03-31 04:33] LABS: CALCIUM 7.8 mg/dL (8.5-10.1); CREATININE 1.1 mg/dL (0.6-1.3)
--- NOTE | 2021-03-31 06:06 | NUR ---
ASSUMED CARE OF PT AFTER REPORT AT 1930. PT A&OX1-2. CONFUSED. VSS. PHYSICAL ASSESSMENT COMPLETED AND CHARTED. PT ON O2 AT 2LNC. PT TRACING SR/BBB ON TELE. PT TURNED TO SIDES. TRANSFERRED TO RM 108 FOR PRN BREATHING TREATMENT. FALL PRECAUTIONS IN PLACE. CALL LIGHT WITHIN REACH.
[2021-03-31 07:46] VITALS: BP 141/71
[2021-03-31 11:55] VITALS: BP 147/55
--- NOTE | 2021-03-31 15:32 | NUR ---
Pt discharging back to [facility] today. Faxed referral and dc orders. Chart copied. Nurse report number is [phone]. Updated Pt's DPOA. Ambulance will fruit or nut picker and transport at 430pm.
--- NOTE | 2021-03-31 16:40 | NUR ---
Report called to Sara at [facility]. residential monitor, IV, & whitehead catheter dc'd. Pt discharged from unit per EMS.
--- NOTE | 2021-04-02 21:48 | CON ---
[address] [address] CONSULTATION Name: BELTRAN MCQUEEN Room: [address] IN ..#: [id number] Admission: 03/26/21 Attend Phys: Itz Alvarez MD Discharge: 03/31/21 Date of : 35 Report #: [id number] THIS REPORT FOR: cc: Sorin Yanez MD, Dennis R MD Pervez,Piotr CROFT ~ DOC #: [id number] Piotr Espinosa MD DATE OF CONSULTATION: 03/27/2021 REQUESTING PHYSICIAN: Itz Alvarez MD. INDICATION FOR CONSULTATION: COVID-19. HISTORY OF PRESENT ILLNESS: An 86-year-old female, past medical history includes a history of atrial fibrillation as well as dementia. There is mention of congestive heart failure on her records; however, the left ventricular ejection fraction on the last echo is normal. The patient is a resident of a residential facility. The patient is now admitted here with increasing shortness of breath. The patient upon arrival initially was saturating 95% on room air; since then however, there has been a drop in the patient's O2 saturation. She is currently requiring 3-4 liters of oxygen to maintain O2 saturation in the low 90s. There is no obvious increase in shortness of breath; however, the patient is unable to provide any meaningful history. There is no known history of fever or chills or upper respiratory complaints. She does have some swelling of lower extremities, but this appears to be more likely longstanding. The patient has had significant diarrhea since admission. It is not known as to whether the diarrhea began after admission or was already present on admission. The patient is reported to have been vaccinated for COVID-19. She answers to the negative for 12 questions for review of systems; however, it does not appear to me that she is understanding the questions. PAST MEDICAL HISTORY: Atrial fibrillation, on long-term anticoagulation, previous history of GI bleeding as well, coronary artery disease, [place], hyperlipidemia, hypertension, schizophrenia, diabetes. There is mention of congestive heart failure on her records. Left ventricular ejection fraction on echo performed last is 60-65%, pulmonary artery systolic on this echo was 15. The patient's baseline creatinine is noted to be fluctuating from 1.1-1.4. SOCIAL HISTORY: Resident of a long-term. No known history of smoking, ethanol abuse, or drug abuse. CURRENT MEDICATIONS: List in [facility] [place] [address] CONSULTATION Name: BELTRAN MCQUEEN Room: [address]#: [id number] Admission: 03/26/21 Attend Phys: Itz Alvarez MD Discharge: 03/31/21 Date of : 35 Report #: [id number] HOME MEDICATIONS: List in [facility] reviewed. ALLERGIES: No known drug allergies. FAMILY HISTORY: No pertinent family history. PHYSICAL EXAMINATION: GENERAL: She is fully awake. She is unable to give a meaningful history as she has dementia. VITAL SIGNS: Has a pulse of 84 and a blood pressure of 148/78. She was saturating 94% on 3 liters nasal cannula. She has a temperature of 37.0. Her respiratory rate is 20, her body mass index is 48. HEENT: Head is normocephalic and atraumatic. Pupils are equal and reactive. She has a narrow airway. There is no throat erythema. NECK: Does not show raised JVP, asymmetry, mass or lymph nodes. CHEST: Symmetrical expansion on inspection and palpation. On auscultation, breath sounds are bilaterally equal. I do not hear any added sounds. HEART: Regular. There is no murmur. ABDOMEN: Soft and nontender. EXTREMITIES: Lower extremities show trace edema, no calf tenderness. There are some skin changes noted. SKIN: Dry and intact. NEUROLOGIC: Moves all extremities bilaterally equally and spontaneously with no focal deficit identified. LABORATORY DATA: The patient's chest x-ray is reviewed and compared to the patient's previous chest x-ray there are increased reticular markings, which are consistent with COVID-19. Certainly mild increase in pulmonary vascular congestion can also give this picture. The patient's lab work is in [facility] and this is also reviewed. ASSESSMENT AND PLAN: 1. Acute hypoxemic respiratory failure secondary to COVID-19. The patient is currently requiring 3 liters of oxygen, but certainly there could be other etiologies as well. For now, we will treat this as COVID-19. The patient however is noted to have had vaccination for COVID-19 previously. If she is to decline, then I will consider use of a BiPAP. If she does wear one, I feel that she will benefit significantly; however, while asleep however considering dementia, it may be difficult for her to wear. I did not order nebulized bronchodilators as the patient is not currently in a negative pressure room and also she does not appear to be actively bronchospastic. 2. COVID-19. Her antigen is positive. PCR is pending. Chest x-ray findings could be secondary to COVID-19, mild increase in [place] [address] CONSULTATION Name: BELTRAN MCQUEEN Room: [address]#: [id number] Admission: 03/26/21 Attend Phys: Itz Alvarez MD Discharge: 03/31/21 Date of : 35 Report #: [id number] can also give this picture. For now, suggest treating as COVID-19. Continue dexamethasone at 6 mg. I will go ahead and order remdesivir as well. Follow LFTs and creatinine. 3. Pulmonary infiltrate. See discussion above. She is on doxycycline. Agree with the same. 4. Diarrhea. Defer evaluation to the primary service. If liquid diarrhea, then consider repeating C. diff. 5. Atrial fibrillation, noted to be on anticoagulation as well as diltiazem long-term. 6. History of dementia. Thanks for this consultation. MD ALEXIA Carroll/JONO <ELECTRONICALLY SIGNED> By: Piotr Espinosa MD 04/02/21 2148 [id number] Espinosa MD /nt
== END 2021-03-31 16:40 | DRG 871 ==
LOC: M.ERS 14:01 → M.TBA-ER 15:59 → M.2W 15:59 → M.ORTHSURG 03-29 15:36
PROVIDERS: Family Medicine; Internal Medicine Critical Care Medicine; ADMIT Internal Medicine; ATTEND Internal Medicine
PROC: XW033E5 Introduction of Remdesivir Anti-infective into Peripheral Vein, Percutaneous Approach, New Technology Group 5 (ICD-10-PCS; principal; 2021-03-27)
DX: A41.89 Other specified sepsis (principal); U07.1 COVID-19; J12.82 Pneumonia due to coronavirus disease 2019; G92 Toxic encephalopathy; J96.01 Acute respiratory failure with hypoxia; I50.33 Acute on chronic diastolic (congestive) heart failure; F20.9 Schizophrenia, unspecified; F03.90 Unspecified dementia, unspecified severity, without behavioral disturbance, psychotic disturbance, mood disturbance, and anxiety; I25.10 Atherosclerotic heart disease of native coronary artery without angina pectoris; E78.5 Hyperlipidemia, unspecified; E11.9 Type 2 diabetes mellitus without complications; I11.0 Hypertensive heart disease with heart failure; I48.91 Unspecified atrial fibrillation; I25.2 Old myocardial infarction; Z79.899 Other long term (current) drug therapy; Z79.4 Long term (current) use of insulin

== ENCOUNTER 2021-04-03 08:03 | Emergency (ER) | payer MEDICARE, MEDICAID ==
[~2021-04-03] VITALS: Ht 144.8 cm; Wt 99.8 kg
[~2021-04-03 08:03] MED LIST changes: +ABHR
[2021-04-03 08:59] LABS: ABSOLUTE BASOPHILS 0.1 thou/uL (0.0-0.2); ABSOLUTE LYMPHOCYTES 0.5 thou/uL (0.8-5.3); ABSOLUTE NEUTROPHILS 13.6 thou/uL (1.6-8.1); BASOPHILS 0.8 %; EOSINOPHILS 0.3 %; HEMATOCRIT 39.3 % (37.0-47.0); HEMOGLOBIN 12.7 gm/dL (12.0-15.0); LYMPHOCYTES 3.1 %; MCH 26.4 pg (26.0-34.0); MCHC 32.2 g/dL (28.0-37.0); MCV 81.8 fL (80.0-100.0); MONOCYTES 6.7 %; MPV 7.8 fl. (7.2-11.1); NUCLEATED RBCS 0 /100WBC; PLATELET COUNT* 313 thou/uL (150-400); POLYS 89.1 %; RBC 4.81 mil/uL (4.20-5.00); RDW-CV 15.9 % (10.5-14.5); WBC 15.2 thou/uL (4.0-11.0)
[2021-04-03 09:10] LABS: CALCIUM 8.8 mg/dL (8.5-10.1); CREATININE 1.2 mg/dL (0.6-1.3); POTASSIUM 3.8 mmol/L (3.5-5.1)
[2021-04-03 09:21] LABS: ALBUMIN 2.8 g/dL (3.4-5.0); TOTAL BILIRUBIN 0.5 mg/dL (<0.1-1.0); TOTAL PROTEIN 7.5 g/dL (6.4-8.2)
[2021-04-03 11:45] VITALS: BP 115/60
--- NOTE | 2021-04-03 11:49 | EKG ---
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
== END 2021-04-03 11:47 | disposition home or self-care (01) ==
LOC: M.ERS 08:03
PROVIDERS: Family Medicine
DX: U07.1 COVID-19 (principal); J96.90 Respiratory failure, unspecified, unspecified whether with hypoxia or hypercapnia; Z51.5 Encounter for palliative care; I48.91 Unspecified atrial fibrillation; E78.5 Hyperlipidemia, unspecified; I10 Essential (primary) hypertension; E11.9 Type 2 diabetes mellitus without complications; J44.9 Chronic obstructive pulmonary disease, unspecified; Z79.4 Long term (current) use of insulin